=== PATIENT | female | born 1960 | race African-American/Black ===

== ENCOUNTER → 2016-03-29 | Outpatient (CLI) | payer OTHER ==
[~2016-03-29] MED LIST: AMLO-110 PO; ANT25 PO; BARB1CAP PO; CLAR500T3 PO; CLIN1GEL TOP; CLOB-65 TOP; CMP/10 PO; EFF75 PO; ERGO1CAP35 PO; GLC5 PO; HYOS0.1271 PO; HYOS1TAB PO; INSU100I SC; INSU100I2 SQ; INSU1INJ15 SC; LISI-461 PO; LISI-729 PO; LVMI SC; METR1TAB4 PO; NORT25CA PO; NRV/5 PO; ONDA4TAB10 SL; ONDA4TAB46 PO; ONDA4TAB65 PO; PLQ200 PO; PTDOPS OPB; RIBO1TAB4 PO; TRAM-10 PO; TRIA0.1C20; ULT/50 PO
== END | disposition home or self-care (01) ==
LOC: C.LABSPEC 13:04
PROVIDERS: ATTEND Nurse Practitioner Family
DX: R76.8 Other specified abnormal immunological findings in serum (principal); E11.9 Type 2 diabetes mellitus without complications

== ENCOUNTER 2016-12-15 09:34 | Emergency (ER) | payer OTHER ==
[~2016-12-15] VITALS: Ht 167.6 cm; Wt 100.2 kg
[~2016-12-15 09:34] MED LIST changes: -AMLO-110 PO; -EFF75 PO; -HYOS0.1271 PO; -INSU100I SC; -LISI-729 PO; -LVMI SC; -ONDA4TAB10 SL; -ONDA4TAB46 PO; -TRAM-10 PO
[2016-12-15 09:39] VITALS: TEMP 36.7; Ht 167.6 cm; Wt 100.2 kg
[2016-12-15] MEDS ORDERED: LISI-729 PO (10:29)
[2016-12-15] MEDS ORDERED: LVMI SC (10:29)
[2016-12-15] MEDS ORDERED: GLC5 PO (10:29)
[2016-12-15] MEDS ORDERED: HYOS0.1271 PO (10:29)
[2016-12-15] MEDS ORDERED: AMLO-110 PO (10:29)
[2016-12-15] MEDS ORDERED: RIBO1TAB4 PO (10:29)
[2016-12-15] MEDS ORDERED: INSU100I SC (10:29)
[2016-12-15] MEDS ORDERED: ONDA4TAB46 PO (10:29)
[2016-12-15] MEDS ORDERED: NORT25CA PO (10:29)
[2016-12-15] MEDS ORDERED: TRAM-10 PO (10:29)
[2016-12-15] MEDS ORDERED: EFF75 PO (10:33)
[2016-12-15] MEDS ORDERED: SODIUM CHLORIDE 0.9% 1000ML 1,000 ML IV STA (10:48)
[2016-12-15] MEDS ORDERED: ONDANSETRON INJ 2 MG/ML 2 ML VIAL IV STA (10:48)
[2016-12-15] MEDS ORDERED: HYOSCYAMINE SULFATE 0.125 MG SL TAB SL STA (10:48)
[2016-12-15 11:03] LABS: BASO % 0.2 %; BASO ABS # 0.02 K/uL (0-0.2); COMPLETE YES; EOS % 0.3 %; IG% 0.2 %; LYMPH % 47.1 %; MEAN CELL VOLUME 86.4 fL (80-100); MEAN CORPUSCULAR HEMOGLOBIN 28.7 pg (25-34); MEAN CORPUSCULAR HGB CONC 33.2 g/dl (32-36); MEAN PLATELET VOLUME 10.2 fL (7.4-10.4); MONO % 5.7 %; NEUT % 46.5 %; PLATELET COUNT 394 K/uL (130-400); RED BLOOD COUNT 5.09 M/uL (4.2-5.4); WHITE BLOOD COUNT 9.97 K/uL (4.8-10.8)
[2016-12-15 11:10] LABS: URINE APPEARANCE TURBID (CLEAR); URINE COLOR DK YELLOW; URINE EPITHELIAL CELL AUTO >30 /lpf (0-5); URINE NITRITE POS (NEG); URINE SPECIFIC GRAVITY 1.033 (1.000-1.030); UROBILINOGEN NEG (NEG)
[2016-12-15 11:12] LABS: BUN/CREATININE RATIO 14.9 (10-20); CALCIUM 9.5 mg/dl (8.5-10.1); CREATININE 0.8 mg/dl (0.60-1.20); POTASSIUM 4.1 mmol/L (3.5-5.1)
[2016-12-15 11:18] LABS: MANUAL MICROSCOPIC REQUIRED? NO; REVIEW REQ? YES; URINE BILIRUBIN NEG (NEG)
[2016-12-15 11:21] LABS: URINE MUCUS PRESENT (NONE PRSENT)
--- NOTE | 2016-12-15 12:39 | DIAGNOSTIC IMAGING REPORT ---
ABDOMEN 2VIEW W/PA CHEST RTN CLINICAL HISTORY: 56 years-old Female presenting with nausea and vomiting for one week, concern for obstruction. TECHNIQUE: PA view of the chest and supine and upright views of the abdomen were obtained. COMPARISON: CT from 2014. FINDINGS: Cardiomediastinal silhouette normal. Lungs and pleural spaces clear. Cholecystectomy clips. Mild gaseous distention of small bowel without convincing evidence of an obstruction. Mild small bowel wall thickening suggested in the left mid abdomen. No evidence of free intraperitoneal gas, pneumatosis, or portal venous gas. Degenerative changes of the spine. IMPRESSION: 1. No acute cardiopulmonary disease. 2. Mild gaseous distention of small bowel could suggest ileus. Suggestion of mild small bowel wall thickening, possibly indicating enteritis. No convincing evidence of bowel obstruction. Further evaluation with cross-sectional imaging as clinically indicated. Electronically signed by: Pedro De Souza M.D. 12/15/2016 12:38 PM Dictated Date/Time: 12/15/2016 12:35 PM
[2016-12-15] MEDS ORDERED: ONDA4TAB10 SL (14:31)
[2016-12-15 15:06] VITALS: BP 132/77; PULSE 89; O2SAT 99
--- NOTE | 2016-12-15 18:14 | EMERGENCY ROOM VISIT NOTE ---
History Report prepared by Asael: Rosie Krishnamurthy Under the Supervision of: Dr. Rafi Maguire M.D. First contact with patient: 10:32 Chief Complaint: GI ASSESSMENT Stated Complaint: GASTRIC INTESTINAL DISEASE Nursing Triage Summary: pt reports 2 weeks ago had an episode of NVD lasting about 3 days , was able to work 1 week then sx started again today History of Present Illness The patient is a 56 year old female who presents to the Emergency Room for a GI assessment. About 10 days ago the patient developed nausea, vomiting, and diarrhea. She states that her symptoms lasted for about 48 hours and then she was feeling better. All week she was doing well and was able to go to work. Four days ago she developed symptoms again. She has been experiencing nausea, vomiting, and diarrhea. She has tried taking Zofran pills, but has been unable to keep it down. She has not been able to eat or drink much. The patient estimates that she is having about 3 episodes of watery diarrhea per day. She denies any melena or hematochezia. She reports diffuse abdominal pain that she describes as crampy and rates as a 6/10 in severity. The patient denies any fevers. Source of History: patient Onset: 4 days ago Position: abdomen Symptom Intensity: 6/10 Quality: cramping Timing: intermittent Modifying Factors (Worsening): eating, drinking Associated Symptoms: + nausea, + vomiting, + diarrhea, No fevers, No melena , No hematochezia Review of Systems See HPI for pertinent positives & negatives. A total of 10 systems reviewed and were otherwise negative. Past Medical & Surgical Medical Problems: (1) Asthma, Unspecified (2) Diab Hattie Wo Compl, Type Ii Or Unspec Type, Not Uncntrld (3) Hypertension Nos (4) IBS (irritable bowel syndrome) (5) Lupus Erythematosus (6) Pulmonary embolism Surgical Problems: (1) History of cholecystectomy Family History Cancer Diabetes mellitus Gallbladder disease Heart disease Hypertension Lung disease Social History Smoking Status: Former Smoker Alcohol Use: occasionally Drug Use: none Marital Status: Housing Status: lives with significant other Occupation Status: employed Current/Historical Medications Scheduled Amlodipine (Norvasc), 5 MG PO DAILY Glipizide (Glipizide), 5 MG PO AMPM Insulin Detemir (Levemir), 30 UNITS SC HS Insulin Lispro (Human) (Humalog), 25 UNITS SC DAILY Lisinopril (Prinivil), 5 MG PO DAILY Nortriptyline (Pamelor), 25 MG PO DAILY Ondasetron Odt (Zofran Odt), 4 MG SL Q6H Riboflavin (Riboflavin), 400 MG PO QPM Venlafaxine Hcl (Effexor), 75 MG PO DAILY Scheduled PRN Hyoscyamine Sulfate (Hyoscyamine Sulfate), 0.125 MG PO DAILY PRN for IBS Ondansetron Hcl (Zofran), 4 MG PO Q6 PRN for Nausea Tramadol (Ultram), 50 MG PO Q8H PRN for Pain Allergies Coded Allergies: Penicillins (Verified Allergy, Severe, ANAPHYLAXIS AND RASH, 12/15/16) Aspirin (Verified Allergy, Unknown, STOMACH UPSET AND ANAPHYLAXIS, 12/15/16 ) Lidocaine (Verified Allergy, Unknown, RASH AND SWELLING AT SITE OF INJECTION, 12/15/16) Rofecoxib (Verified Allergy, Unknown, ANAPHYLAXIS, 12/15/16) Physical Exam Vital Signs Date Time Temp Pulse Resp B/P (MAP) Pulse Ox O2 Delivery O2 Flow Rate FiO2 12/15/16 15:06 89 17 132/77 99 12/15/16 13:36 92 17 135/85 98 Room Air 12/15/16 12:36 64 17 125/82 99 Room Air 12/15/16 11:50 83 21 124/87 97 Room Air 12/15/16 09:39 36.7 98 20 96 Room Air Physical Exam Constitutional: Vital signs reviewed. Eyes: Pupils are equal round reactive to light. Conjunctiva are noninjected. ENT: Pharynx is clear without erythema or exudate. Mucous membranes are dry. Neck supple without meningeal signs. Respiratory: Clear to auscultation bilaterally. Breath sounds are equal bilaterally. Cardiovascular: Regular rate and rhythm. No rubs or gallops. GI: Soft, nondistended with mild diffuse abdominal tenderness. Bowel sounds are present. Musculoskeletal: No peripheral edema. No lower extremity tenderness. Integumentary: No cyanosis. Neurological: The patient is awake and alert. No focal deficits. Psychiatric: Normal affect. Medical Decision & Procedures ER Provider Diagnostic Interpretation: Radiology results as stated below per my review and the radiologist's interpretation: ABDOMEN 2VIEW W/PA CHEST RTN CLINICAL HISTORY: 56 years-old Female presenting with nausea and vomiting for one week, concern for obstruction. TECHNIQUE: PA view of the chest and supine and upright views of the abdomen were obtained. COMPARISON: CT from 2014. FINDINGS: Cardiomediastinal silhouette normal. Lungs and pleural spaces clear. Cholecystectomy clips. Mild gaseous distention of small bowel without convincing evidence of an obstruction. Mild small bowel wall thickening suggested in the left mid abdomen. No evidence of free intraperitoneal gas, pneumatosis, or portal venous gas. Degenerative changes of the spine. IMPRESSION: 1. No acute cardiopulmonary disease. 2. Mild gaseous distention of small bowel could suggest ileus. Suggestion of mild small bowel wall thickening, possibly indicating enteritis. No convincing evidence of bowel obstruction. Further evaluation with cross-sectional imaging as clinically indicated. Electronically signed by: Pedro De Souza M.D. 12/15/2016 12:38 PM Dictated Date/Time: 12/15/2016 12:35 PM Laboratory Results 12/15/16 10:25 Red Blood Count 5.09, Mean Corpuscular Volume 86.4, Mean Corpuscular Hemoglobin 28.7, Mean Corpuscular Hemoglobin Concent 33.2, Mean Platelet Volume 10.2, Neutrophils (%) (Auto) 46.5, Lymphocytes (%) (Auto) 47.1, Monocytes (%) (Auto) 5.7, Eosinophils (%) (Auto) 0.3, Basophils (%) (Auto) 0.2, Neutrophils # (Auto) 4.63, Lymphocytes # (Auto) 4.70, Monocytes # (Auto) 0.57, Eosinophils # (Auto) 0.03, Basophils # (Auto) 0.02 12/15/16 10:25 Test 12/15/16 10:20 12/15/16 10:25 Urine Color DK YELLOW Urine Appearance TURBID (CLEAR) Urine pH 5.0 (4.5-7.5) Urine Specific Elizabeth 1.033 (1.000-1.030) Urine Protein 1+ (NEG) Urine Glucose (UA) TRACE (NEG) Urine Ketones 1+ (NEG) Urine Occult Blood NEG (NEG) Urine Nitrite POS (NEG) Urine Bilirubin NEG (NEG) Urine Urobilinogen NEG (NEG) Urine Leukocyte Esterase NEG (NEG) Urine WBC (Auto) 1-5 /hpf (0-5) Urine RBC (Auto) 0-4 /hpf (0-4) Urine Hyaline Casts (Auto) 1-5 /lpf (0-5) Urine Epithelial Cells (Auto) >30 /lpf (0-5) Urine Bacteria (Auto) 2+ (NEG) Urine Crystals AMORPHOUS SEDIMENT (NONE Urine Pathogenic Casts /lpf (0) Urine Mucus PRESENT (NONE PRSENT) White Blood Count 9.97 K/uL (4.8-10.8) Red Blood Count 5.09 M/uL (4.2-5.4) Hemoglobin 14.6 g/dL (12.0-16.0) Hematocrit 44.0 % (37-47) Mean Corpuscular Volume 86.4 fL (80-100) Mean Corpuscular Hemoglobin 28.7 pg (25-34) Mean Corpuscular Hemoglobin Concent 33.2 g/dl (32-36) Platelet Count 394 K/uL (130-400) Mean Platelet Volume 10.2 fL (7.4-10.4) Neutrophils (%) (Auto) 46.5 % Lymphocytes (%) (Auto) 47.1 % Monocytes (%) (Auto) 5.7 % Eosinophils (%) (Auto) 0.3 % Basophils (%) (Auto) 0.2 % Neutrophils # (Auto) 4.63 K/uL (1.4-6.5) Lymphocytes # (Auto) 4.70 K/uL (1.2-3.4) Monocytes # (Auto) 0.57 K/uL (0.11-0.59) Eosinophils # (Auto) 0.03 K/uL (0-0.5) Basophils # (Auto) 0.02 K/uL (0-0.2) RDW Standard Deviation 44.1 fL (36.4-46.3) RDW Coefficient of Variation 14.1 % (11.5-14.5) Immature Granulocyte % (Auto) 0.2 % Immature Granulocyte # (Auto) 0.02 K/uL (0.00-0.02) Anion Gap 10.0 mmol/L (3-11) Est Creatinine Clear Calc Drug Dose 91.5 ml/min Estimated GFR () 94.2 Estimated GFR (Non- 81.3 BUN/Creatinine Ratio 14.9 (10-20) Calcium Level 9.5 mg/dl (8.5-10.1) Total Bilirubin 0.7 mg/dl (0.2-1) Direct Bilirubin 0.1 mg/dl (0-0.2) Aspartate Amino Transf (AST/SGOT) 12 U/L (15-37) Alanine Aminotransferase (ALT/SGPT) 22 U/L (12-78) Alkaline Phosphatase 117 U/L (45-117) Total Protein 7.5 gm/dl (6.4-8.2) Albumin 3.7 gm/dl (3.4-5.0) Lipase 58 U/L (73-393) Laboratory results as reviewed by me. Medications Administered Medications (Trade) Dose Ordered Sig/Karen Route Start Time Stop Time Status Last Admin Dose Admin Ondansetron HCl (Zofran Inj) 4 mg NOW STAT IV 12/15/16 10:48 12/15/16 10:50 DC 12/15/16 11:28 4 MG Sodium Chloride 1,000 ml @ 999 mls/hr Q1H1M STAT IV 12/15/16 10:48 12/15/16 11:48 DC 12/15/16 11:28 999 MLS/HR Hyoscyamine Sulfate (Levsin Tab) 0.125 mg NOW STAT SL 12/15/16 10:48 12/15/16 10:50 DC 12/15/16 11:28 0.125 MG ED Course 1032: The patient was evaluated in room C9. A complete history and physical exam was performed. 1048: Levsin 0.125 mg SL, NSS 1000 ml @ 999 mls/hr IV, Zofran 4 mg IV 1427: I reassessed the patient at this time. She is feeling better and resting comfortably. I discussed the results and treatment plan with patient. I answered all pertaining questions that she had. She expressed understanding and verbalized agreement. The patient will be discharged home. Medical Decision This is a 56-year-old female who presents with vomiting and diarrhea. Differential diagnosis includes food borne illness, gastroenteritis, dehydration , electrolyte abnormality, C. difficile. I did perform a limited focused review of portions of the patient's old chart on the electronic medical record. The patient has had no recent pertinent visits to this hospital. I did evaluate the patient as noted above. Patient is presenting with episodic vomiting and diarrhea. She denies any recent antibiotic use. She has had no foreign travel. No sick contacts. IV access was established. I did treat the patient with Zofran IV and normal saline IV. She was also given Levsin sublingually. I did order and personally review the patient's urinalysis as described above. Findings are equivocal. She denies urinary symptoms. A urine culture was sent. I did order and review the patient's blood work as noted in the electronic medical record. Her white blood cell count is not elevated. Electrolytes are unremarkable. I did obtain an x-ray of the abdomen and chest. She does have some small bowel wall thickening suggestive of enteritis. I did order stool cultures and C. difficile testing the patient was unable to give us a sample. I did reassess the patient. She is feeling better. I did discuss the test results with her. After discussion about possible CT scanning she preferred not to have it done. She was discharged with a prescription for Zofran ODT which she will take instead of her pills. She will follow closely with her doctor. She was discharged in good condition. Medication Reconcilliation Current Medication List: was personally reviewed by me Blood Pressure Screening Patient's blood pressure: Elevated blood pressure Blood pressure disposition: Elevated BP felt to be situational Impression Primary Impression: Gastroenteritis Additional Impression: Dehydration Scribe Attestation The scribe's documentation has been prepared under my direct and personally reviewed by me in its entirety. I confirm that the note above accurately reflects all work, treatment, procedures, and medical decision making performed by me. Departure Information Dispostion Home / Self-Care Prescriptions Ondasetron Odt (ZOFRAN ODT) 4 Mg Tab 4 MG SL Q6H for Nausea, #10 TAB Prov: Rafi Maguire M.D. 12/15/16 Referrals Yobani Hernandez M.D. (PCP) Forms HOME CARE DOCUMENTATION FORM, IMPORTANT VISIT INFORMATION Patient Instructions ED Vomiting Diarrhea Nonspecific Ad, My [facility] Additional Instructions You have been examined and treated today on an emergency basis only. This is not a substitute for, or an effort to provide, complete comprehensive medical care. It is impossible to recognize and treat all injuries or illnesses in a single emergency department visit. It is therefore important that you follow up closely with your physician. Call as soon as possible for an appointment. Return for worsening symptoms or if you develop fever, rectal bleeding or any other concerning symptoms. Problem Qualifiers
== END 2016-12-15 15:05 | disposition home or self-care (01) ==
LOC: C.EDB 09:36 → C.EDC 15:05
DX: K52.9 Noninfective gastroenteritis and colitis, unspecified (principal); E86.0 Dehydration; E11.9 Type 2 diabetes mellitus without complications; Z79.4 Long term (current) use of insulin; Z79.899 Other long term (current) drug therapy; I10 Essential (primary) hypertension

== ENCOUNTER → 2017-02-25 | Outpatient (CLI) | payer OTHER ==
[~2017-02-25] MED LIST changes: +AMLO-110 PO; -ANT25 PO; -BARB1CAP PO; -CLAR500T3 PO; -CLIN1GEL TOP; -CLOB-65 TOP; -CMP/10 PO; +EFF75 PO; -ERGO1CAP35 PO; +HYOS0.1271 PO; -HYOS1TAB PO; +INSU100I SC; -INSU100I2 SQ; -INSU1INJ15 SC; -LISI-461 PO; +LISI-729 PO; +LVMI SC; -METR1TAB4 PO; -NRV/5 PO; +ONDA4TAB10 SL; +ONDA4TAB46 PO; -ONDA4TAB65 PO; -PLQ200 PO; -PTDOPS OPB; +TRAM-10 PO; -TRIA0.1C20; -ULT/50 PO
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
== END | disposition home or self-care (01) ==
LOC: C.RAD1850 16:06
PROVIDERS: ATTEND Family Medicine
DX: M75.31 Calcific tendinitis of right shoulder (principal); V89.2XXA Person injured in unspecified motor-vehicle accident, traffic, initial encounter

== ENCOUNTER → 2017-02-26 | Outpatient (CLI) | payer OTHER ==
[~2017-02-26] VITALS: Ht 167.6 cm; Wt 103.7 kg
[2017-02-26 16:10] VITALS: BP 137/92; PULSE 97; Ht 167.6 cm; Wt 103.7 kg
== END | disposition home or self-care (01) ==
LOC: C.NEUR 15:20
PROVIDERS: ATTEND Internal Medicine Pulmonary Disease
DX: G47.33 Obstructive sleep apnea (adult) (pediatric) (principal)

== ENCOUNTER → 2017-03-26 | Outpatient (CLI) | payer OTHER ==
[2017-03-26 12:14] LABS: HEMOGLOBIN 13.3 g/dL (12.0-16.0); MEAN CELL VOLUME 87.9 fL (80-100); MEAN CORPUSCULAR HEMOGLOBIN 29.2 pg (25-34); MEAN CORPUSCULAR HGB CONC 33.3 g/dl (32-36); MEAN PLATELET VOLUME 10.8 fL (7.4-10.4); PLATELET COUNT 380 K/uL (130-400); RED CELL DISTRIBUTION WIDTH SD 47.9 fL (36.4-46.3); WHITE BLOOD COUNT 8.22 K/uL (4.8-10.8)
[2017-03-26 12:24] LABS: ALBUMIN 3.5 gm/dl (3.4-5.0); BLOOD UREA NITROGEN 14 mg/dl (7-18); CALCIUM 9.5 mg/dl (8.5-10.1); CARBON DIOXIDE 29 mmol/L (21-32); CREATININE 0.74 mg/dl (0.60-1.20); GLUCOSE 162 mg/dl (70-99); PHOSPHORUS 4.5 mg/dl (2.5-4.9); POTASSIUM 4.1 mmol/L (3.5-5.1); SODIUM 139 mmol/L (136-145)
== END | disposition home or self-care (01) ==
LOC: C.LAB1850 10:14
PROVIDERS: ATTEND Internal Medicine Nephrology
DX: I12.9 Hypertensive chronic kidney disease with stage 1 through stage 4 chronic kidney disease, or unspecified chronic kidney disease (principal); N18.9 Chronic kidney disease, unspecified; D64.9 Anemia, unspecified; E55.9 Vitamin D deficiency, unspecified

== ENCOUNTER → 2017-04-10 | Outpatient (CLI) | payer OTHER | END | disposition home or self-care (01) | LOC: C.LAB 11:34 | PROVIDERS: ATTEND Internal Medicine Nephrology | DX: E78.00 Pure hypercholesterolemia, unspecified (principal) ==

== ENCOUNTER → 2017-05-18 | Outpatient (CLI) | payer OTHER ==
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
== END | disposition home or self-care (01) ==
LOC: C.MRI 13:38
PROVIDERS: ATTEND Orthopaedic Surgery
DX: M75.01 Adhesive capsulitis of right shoulder (principal); M75.101 Unspecified rotator cuff tear or rupture of right shoulder, not specified as traumatic; M75.51 Bursitis of right shoulder

== ENCOUNTER → 2017-08-03 | Day surgery (SDC) | payer OTHER ==
[2017-06-04 15:10] VITALS: Ht 167.6 cm; Wt 103.2 kg
[2017-07-17 08:43] LABS: HEMOGLOBIN 13.4 g/dL (12.0-16.0); MEAN CELL VOLUME 87.8 fL (80-100); MEAN CORPUSCULAR HEMOGLOBIN 30.2 pg (25-34); MEAN CORPUSCULAR HGB CONC 34.4 g/dl (32-36); MEAN PLATELET VOLUME 10.1 fL (7.4-10.4); PLATELET COUNT 300 K/uL (130-400); RED CELL DISTRIBUTION WIDTH SD 45.4 fL (36.4-46.3); WHITE BLOOD COUNT 6.81 K/uL (4.8-10.8)
[2017-07-17 09:15] LABS: ALBUMIN 3.6 gm/dl (3.4-5.0); CALCIUM 8.8 mg/dl (8.5-10.1); CREATININE 0.63 mg/dl (0.60-1.20); POTASSIUM 4.1 mmol/L (3.5-5.1)
[2017-07-17 09:18] LABS: TOTAL PROTEIN 7.3 gm/dl (6.4-8.2)
[~2017-08-03] VITALS: Ht 167.6 cm; Wt 103.2 kg
[~2017-08-03] MED LIST changes: +ATOR-24 PO; +CLINDAMYCIN PHOS 150 MG/ML 2 ML VIAL IV SCH; +DEXAMETHASONE SOD INJ 4 MG/ML VIAL ONE; +DEXTROSE 50% 50 ML SYR IV ONE; +ERGO500011 PO; +EpINEphrine HCL INJ 1 MG/ML 1ML SYRINGE ONE; +FENTANYL CITRATE INJ 50 MCG/1 ML 2 ML VIAL ONE; -GLC5 PO; +LACTATED RINGER'S 1000ML 1,000 ML IV SCH; +LIDOCAINE HCL 2% 2 ML VIAL (20MG/ML) ONE; +MIDAZOLAM HCL 1 MG/ML 2ML VIAL ONE; -NORT25CA PO; +NURSING VERBAL MED ORDER ONE; -ONDA4TAB10 SL; +ONDANSETRON INJ 2 MG/ML 2 ML VIAL ONE; +PROPOFOL IV EMULSION 10 MG/ML 20 ML VIAL ONE; +ROCURONIUM BROMIDE 10 MG/ML 5 ML VIAL ONE; +ROPIVACAINE 0.5% 5 MG/ML 30 ML VIAL ONE
--- NOTE | 2017-08-03 06:43 | History & Physical Bridge - SC ---
H&P Re-Evaluation Bridge Note: I have examined the patient, reviewed the History & Physical and in the interval since the performance of the History & Physical I have noted the following changes of clinical significance: No changes noted
[2017-08-03] MEDS: DEXTROSE 50% 50 ML SYR ONE ×2 (06:46→07:00)
[2017-08-03 06:56] VITALS: BP 135/72; PULSE 87; TEMP 37; O2SAT 97
--- NOTE | 2017-08-03 09:25 | Progress Note ---
Progress Note Date of Service August 03, 2017. Progress Note The patient has a history of brittle insulin -dependent diabetes. On arrival the patient's FBG was 44 and on repeat, 49. She was given 1/2 amp of D50 and her blood sugar only went up to 74. She was given the other half amp od D50 and it went up to 107, far less than I expected. I discussed this with Dr. Freeman and the patient and explained the risk of proceeding with the case today, because there is a significant chance of her becoming hypoglycemic during the case, and suggested that we cancel for today and re-schedule at the main [facility].R[facility] where we can have an arterial line for frequent monitoring. In addition we will allow her to take her evening insulin but no insulin in the morning.She had been instructed to take half of her humalog and levimir insulin on the morning of surgery.
== END | disposition home or self-care (01) ==
LOC: X.SURG 06:19
PROVIDERS: ATTEND Orthopaedic Surgery
DX: Z53.09 Procedure and treatment not carried out because of other contraindication (principal); S46.011A Strain of muscle(s) and tendon(s) of the rotator cuff of right shoulder, initial encounter; V89.2XXA Person injured in unspecified motor-vehicle accident, traffic, initial encounter; J45.909 Unspecified asthma, uncomplicated; E10.9 Type 1 diabetes mellitus without complications; I10 Essential (primary) hypertension; K21.9 Gastro-esophageal reflux disease without esophagitis; E55.9 Vitamin D deficiency, unspecified; I12.9 Hypertensive chronic kidney disease with stage 1 through stage 4 chronic kidney disease, or unspecified chronic kidney disease; Z88.6 Allergy status to analgesic agent; Z88.4 Allergy status to anesthetic agent; Z88.1 Allergy status to other antibiotic agents; Z88.0 Allergy status to penicillin; Z90.49 Acquired absence of other specified parts of digestive tract; E78.5 Hyperlipidemia, unspecified; Z86.711 Personal history of pulmonary embolism; N18.9 Chronic kidney disease, unspecified; F32.9 Major depressive disorder, single episode, unspecified; F41.9 Anxiety disorder, unspecified; E66.9 Obesity, unspecified

== ENCOUNTER 2020-05-29 16:50 | Inpatient (IN) ==
[2020-05-29] MEDS ORDERED: ALBUT/IPRATROP 3MG/0.5MG NEB 3 ML VIAL INH STA (17:12)
--- NOTE | 2020-05-29 17:17 | Emergency Department Note ---
Impression & Plan Pulmonary embolism, Hypoxia, Demand ischemia of myocardium ED Provider Note Provider: Mario Odell MD DATE OF SERVICE: 05/29/2020 CHIEF COMPLAINT: Shortness of breath HISTORY OF PRESENT ILLNESS: Patient is a 59-year-old female with a past medical history including intercostal neuralgia, CKG, fibromyalgia, IBS, lupus, diabetes, hypertension, distant history of PE more than 30 years ago presenting here today reporting significant shortness of breath since this morning. States she went for a walk on Wednesday and was a bit more winded than normal then but this quickly improved and yesterday she was doing well. Woke this morning was significantly short of breath and prickly with exertion felt very winded and somewhat faint. States he is having some more chest discomfort as well beyond her normal intercostal neuralgia. Patient states she is several doses of her inhaler at home but that has not helped. Patient states he felt a bit wheezy but denies fever or URI symptoms. Denies leg swelling or recent travel. States her prior PE she believes was related to OCPs and was more than 3 decades ago. Lives at home with who is otherwise well. REVIEW OF SYSTEMS: A total of 10 review of systems was obtained and negative except as stated above in the HPI. 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 NECK: Trachea midline. LUNGS: Airway patent. No retractions but tachypneic. Slight expiratory wheeze throughout. HEART: Regular tachycardic rate and rhythm. No chest wall tenderness ABDOMEN: Soft and non-tender, without guarding or rebound. SKIN: Acyanotic, warm, dry, without rashes EXTREMITIES: Without swelling, tenderness or deformity NEUROLOGICAL: No focal deficits. No aphasia. No facial droop or slurred speech. EK bpm sinus tachycardia. No PVC or PAC. Some lateral ST flattening with T wave inversions more prominent in inferior leads compared to previous from 03/19. No acute ST segment elevation is noted today. Right axis noted. CONTINUOUS CARDIAC MONITORING: was ordered and showed a heart rate of 110s-120s bpm in sinus tachycardia Patient's laboratory studies and imaging reviewed. Differential includes Reactive airway disease, pneumonia, pneumothorax, COPD, CHF, infections, cardiac ischemia, pulmonary embolism, musculoskeletal, gastrointestinal, as well as other pathologies. IMPRESSION/MEDICAL DECISION MAKING: Patient is complaining of shortness of breath tachycardic and hypoxic. Some worsening chest discomfort. Significant concern for possible PE. I-STAT obtained. Patient maintained on 2 to 3 L of oxygen at rest satting about 90%. Did trial DuoNeb without significant change in symptoms. Doubt this is significant reactive airway disease. EKG noted question some inferior T wave inversions new today. Blood work with hyperglycemia and slightly elevated troponin. Likely demand ischemia. Nonspecific white count of 12.2 noted. proBNP mildly elevated at 4780. Covid test was sent. CT per radiology with evidence of extensive bilateral PEs. Likely pulmonary infarct based on the clinical context throughout the right lung. Doubt this is acutely infectious given her history and testing here today. A 1.9 cm mediastinal lymph node was noted and patient was made aware of this. Patient was started on heparin ggt. She was updated regarding findings and the PEs noted on scan. Hospitalist contacted for admission. Do not feel at this time she represents a massive PE requiring TPA. DIAGNOSIS: Hypoxia, bilateral PEs, demand ischemia DISPOSITION: Hospitalist will evaluate Patient was agreeable with this plan. Critical Care I have personally spent 35 minutes of critical care time in the direct management of this patient. This includes bedside care, interpretation of diagnostic studies, and testing, discussion with consultants, patient, and family members, and other required patient management activities. These 35 minutes is in excess of all separately billable procedures. Past Med/Surg History Medical History Acute diverticulitis Anemia Cataracts, both eyes Deep vein thrombosis Difficult airway for intubation Gastroenteritis H. pylori infection History of anesthesia reaction Post concussion syndrome Pulmonary embolism Right upper quadrant abdominal pain Right-sided thoracic back pain Surgical History History of cholecystectomy History of colonoscopy History of dilatation and curettage History of esophagogastroduodenoscopy (EGD) History of left breast biopsy History of ovarian cystectomy History of phacoemulsification of cataract of both eyes with intraocular lens implantation History of repair of right rotator cuff History of wisdom tooth extraction Family History Mother Family history of diabetes mellitus Grandmother (Maternal) Family history of diabetes mellitus Grandfather (Paternal) Family history of diabetes mellitus Aunt Family history of diabetes mellitus Family/Other Family history of diabetes mellitus cousins Other No family history of adverse response to anesthesia Social History Smoking Status: Former smoker Second Hand Exposure: Yes (father/relatives smoked); Hx Alcohol Use: Yes Alcohol type: beer, wine and hard liquor Hx Substance Use: No Preferred Language: Serbian Communication Ability: Effective Special Needs Teacher Required: No Beliefs That Will Affect Care: Mormon Mormon Beliefs: Spiritism--will receive Blood Products Current Living Situation: Spouse Other Information That Helps Us Care for You: No Feels Safe at Home: Yes Safety Concerns: Feels Safe At This Time Assistive Devices: Oxygen - Continuous Allergies Allergies Allergy/AdvReac Type Severity Reaction Status Date / Time aspirin Allergy Severe STOMACH Verified 05/22/20 09:15 UPSET AND ANAPHYLAXIS Penicillins Allergy Severe ANAPHYLAXIS Verified 05/22/20 09:15 AND RASH rofecoxib Allergy Severe ANAPHYLAXIS Verified 05/22/20 09:15 pollen extracts Allergy Unknown SINUS Verified 05/22/20 09:15 CONGESTION, ITCHY THROAT, WATERY EYES tomato AdvReac Mild nausea/vomi Verified 05/22/20 09:15 ting Vioxx Allergy Uncoded 05/22/20 09:15 Home Meds Home Medications Medication Instructions Recorded Confirmed Benefiber Healthy Shape 5 g PO QAM 10/06/18 05/29/20 Levemir FlexTouch U-100 Insuln 15 unit SUBCUT AMPM 10/06/18 05/29/20 albuterol sulfate [ProAir HFA] 2 puff INHALATION Q6H PRN 10/06/18 05/29/20 amlodipine 10 mg PO QAM 10/06/18 05/29/20 clindamycin phosphate 1 applic TOPICAL DAILY PRN 10/06/18 05/29/20 clobetasol 1 applic TOPICAL DAILY PRN 10/06/18 05/29/20 ergocalciferol (vitamin D2) 50,000 unit PO WK 10/06/18 05/29/20 glimepiride 2 mg PO QAM 10/06/18 05/29/20 insulin lispro [Humalog KwikPen 0 unit SUBCUT TIDM 10/06/18 05/29/20 Insulin] lisinopril 10 mg PO QAM 10/06/18 05/29/20 prochlorperazine maleate 10 mg PO UD PRN 10/06/18 05/29/20 [Compazine] riboflavin (vitamin B2) 400 mg PO QAM 10/06/18 05/29/20 tramadol 50 mg PO TID PRN 10/06/18 05/29/20 venlafaxine 150 mg PO AMPM 10/06/18 05/29/20 ydrlefrwvm-rypeciysfpeyd-gscqilam 1 tab PO Q4H PRN 06/08/19 05/29/20 50 mg-325 mg-40 mg tablet magnesium oxide 500 mg capsule 500 mg PO DAILY 06/08/19 05/29/20 ondansetron HCl 8 mg tablet 8 mg PO TID 06/08/19 05/29/20 Previous Rx's Medication Instructions Recorded pregabalin 100 mg capsule 100 mg PO BID #60 cap 04/12/20 diclofenac sodium 50 mg 50 mg PO BID #60 tab 04/29/20 tablet,delayed release Results & Data (ED) Vital Signs Vital Signs - 24 hr 05/29/20 16:54 05/29/20 17:04 05/29/20 17:06 Temperature 36.4 C L Temperature Source Oral Pulse Rate 128 H 133 H Pulse Rate [Apical] 120 H Pulse Rate from SpO2 Sensor 122 H Respiratory Rate 28 H 24 18 Respiratory Effort / Characteristics Blood Pressure 181/95 H 161/102 H Blood Pressure [Right Arm] 161/102 H Blood Pressure Mean 123 121 Blood Pressure Mean [Right Arm] 121 Pulse Oximetry 82 L 90 90 Oxygen Delivery Method Nasal Cannula Oxygen Flow Rate 3 Sepsis Recent Fever Within 48 Hours No Sepsis New/Unexplained Change in Mental Status N/A Sepsis Action Taken by Nursing No Action Required Oxygen Flow Rate - Titration 3 Pulse Oximetry Post Tiitration 91 05/29/20 17:07 05/29/20 17:21 05/29/20 17:30 Temperature Temperature Source Pulse Rate 120 H 117 H Pulse Rate [Apical] Pulse Rate from SpO2 Sensor 121 H Respiratory Rate 32 H 16 Respiratory Effort / Characteristics Blood Pressure Blood Pressure [Right Arm] Blood Pressure Mean Blood Pressure Mean [Right Arm] Pulse Oximetry 90 Oxygen Delivery Method Nasal Cannula Oxygen Flow Rate 3 Sepsis Recent Fever Within 48 Hours Sepsis New/Unexplained Change in Mental Status Sepsis Action Taken by Nursing Oxygen Flow Rate - Titration Pulse Oximetry Post Tiitration 05/29/20 17:35 05/29/20 18:09 05/29/20 18:10 Temperature Temperature Source Pulse Rate 114 H 0 L 117 H Pulse Rate [Apical] Pulse Rate from SpO2 Sensor 115 H 118 H 116 H Respiratory Rate 24 19 19 Respiratory Effort / Characteristics Blood Pressure 120/90 143/101 H Blood Pressure [Right Arm] Blood Pressure Mean 100 115 Blood Pressure Mean [Right Arm] Pulse Oximetry 88 L 87 L 85 L Oxygen Delivery Method Oxygen Flow Rate Sepsis Recent Fever Within 48 Hours Sepsis New/Unexplained Change in Mental Status Sepsis Action Taken by Nursing Oxygen Flow Rate - Titration Pulse Oximetry Post Tiitration 05/29/20 18:30 05/29/20 18:45 05/29/20 19:00 Temperature Temperature Source Pulse Rate Pulse Rate [Apical] 115 H Pulse Rate from SpO2 Sensor 116 H 118 H Respiratory Rate 21 27 H 27 H Respiratory Effort / Characteristics Non-Labored Spontaneous Blood Pressure 172/105 H Blood Pressure [Right Arm] Blood Pressure Mean 127 Blood Pressure Mean [Right Arm] Pulse Oximetry 93 92 Oxygen Delivery Method Nasal Cannula Nasal Cannula Oxygen Flow Rate 3 3 Sepsis Recent Fever Within 48 Hours Sepsis New/Unexplained Change in Mental Status Sepsis Action Taken by Nursing Oxygen Flow Rate - Titration Pulse Oximetry Post Tiitration 05/29/20 19:15 05/29/20 19:30 05/29/20 19:31 Temperature Temperature Source Pulse Rate Pulse Rate [Apical] Pulse Rate from SpO2 Sensor 116 H 121 H 119 H Respiratory Rate 25 H 35 H 19 Respiratory Effort / Characteristics Blood Pressure 198/121 H Blood Pressure [Right Arm] Blood Pressure Mean 146 Blood Pressure Mean [Right Arm] Pulse Oximetry 92 86 L 88 L Oxygen Delivery Method Nasal Cannula Nasal Cannula Nasal Cannula Oxygen Flow Rate 3 0 0 Sepsis Recent Fever Within 48 Hours Sepsis New/Unexplained Change in Mental Status Sepsis Action Taken by Nursing Oxygen Flow Rate - Titration Pulse Oximetry Post Tiitration Laboratory Data Result diagrams: 05/29/20 17:20 05/29/20 17:20 Lab Results 03/17/21 03/17/21 03/17/21 Range/Units 17:20 17:20 17:20 WBC 12.21 H (4.8-10.8) K/uL RBC 4.41 (4.2-5.4) M/uL Hgb 13.4 (12.0-16.0) g/dL POC Hgb (12.0-16.0) g/dl Hct 38.4 (37-47) % POC Hct (37-47) % MCV 87.1 (80-100) fL MCH 30.4 (25-34) pg MCHC 34.9 (32-36) g/dL RDW Std Deviation 48.4 H (36.4-46.3) fL RDW Coeff of Jb 15.1 H (11.5-14.5) % Plt Count 241 (130-400) K/uL MPV 10.4 (7.4-10.4) fL Immature Gran % (Auto) 0.4 % Neut % (Auto) 68.2 % Lymph % (Auto) 25.2 % Burnett % (Auto) 5.9 % Eos % (Auto) 0.1 % Baso % (Auto) 0.2 % Neut # (Auto) 8.33 H (1.4-6.5) K/uL Lymph # (Auto) 3.08 (1.2-3.4) K/uL Burnett # (Auto) 0.72 H (0.11-0.59) K/uL Eos # (Auto) 0.01 (0-0.5) K/uL Baso # (Auto) 0.02 (0-0.2) K/uL Immature Gran # (Auto) 0.05 H (0.00-0.02) K/uL PT 11.4 (9.0-12.0) Seconds INR 1.1 (0.9-1.1) APTT 23.0 (21.0-31.0) Seconds PTT Ratio 0.9 POC Sodium (135-144) mmol/L Sodium 136 (136-145) mmol/L POC Potassium (3.3-5.0) mmol/L Potassium 4.1 (3.5-5.1) mmol/L POC Chloride (101-112) mmol/L Chloride 104 (98-107) mmol/L Carbon Dioxide 20 L (21-32) mmol/L POC Total CO2 (24-31) mmol/L Anion Gap 12.0 H (3-11) POC Anion Gap (16-25) mmol/L POC BUN (7-18) mg/dl BUN 16 (7-18) mg/dl Creatinine 1.05 (0.6-1.2) mg/dl POC Creatinine (0.6-1.3) mg/dl Est Cr Clr Drug Dosing 70.5 ml/min Est GFR ( Amer) 66.4 Est GFR (Non-Af Amer) 57.3 BUN/Creatinine Ratio 15.3 (10-20) Glucose 381 H* (70-99) mg/dl POC Glucose (other) (70-99) mg/dl Calcium 9.3 (8.5-10.1) mg/dl POC Ioniz Calcium [place]ush[place] (1.12-1.32) mmol/l Magnesium 1.8 (1.8-2.4) mg/dl Total Bilirubin 0.8 (0.2-1) mg/dl AST 25 (15-37) U/L ALT 39 (12-78) U/L Alkaline Phosphatase 94 (45-117) U/L Troponin I 0.063 H* (0-0.045) ng/ml NT-Pro-B Natriuret Pep 4780 H (0-900) pg/ml Total Protein 7.3 (6.4-8.2) gm/dl Albumin 3.4 (3.4-5.0) gm/dl Globulin 3.9 (2.5-4.0) gm/dl Albumin/Globulin Ratio 0.9 (0.9-2) Lipase 42 L (73-393) U/L Beta-Hydroxybutyric Acd 11.60 H (0.2-2.81) mg/dl Urine Color Urine Appearance (Clear) Urine pH (4.5-7.5) Ur Specific [place] (1.000-1.030) Urine Protein (Negative) Urine Glucose (UA) (Negative) Urine Ketones (Negative) Urine Blood (Negative) Urine Nitrite (Negative) Urine Bilirubin (Negative) Urine Urobilinogen (Negative) Ur Leukocyte Esterase (Negative) Urine WBC (Auto) (0-5) /hpf Urine RBC (Auto) (0-4) /hpf U Hyaline Cast (Auto) (0-5) /lpf U Epithel Cells (Auto) (0-5) /lpf Urine Bacteria (Auto) (Negative) COVID-19 Eval Order SARS-CoV-2, RNA, NAAT (NEGATIVE) 05/29/20 05/29/20 05/29/20 Range/Units 17:29 18:12 18:12 WBC (4.8-10.8) K/uL RBC (4.2-5.4) M/uL Hgb (12.0-16.0) g/dL POC Hgb 13.9 (12.0-16.0) g/dl Hct (37-47) % POC Hct 41 (37-47) % MCV (80-100) fL MCH (25-34) pg MCHC (32-36) g/dL RDW Std Deviation (36.4-46.3) fL RDW Coeff of Jb (11.5-14.5) % Plt Count (130-400) K/uL MPV (7.4-10.4) fL Immature Gran % (Auto) % Neut % (Auto) % Lymph % (Auto) % Burnett % (Auto) % Eos % (Auto) % Baso % (Auto) % Neut # (Auto) (1.4-6.5) K/uL Lymph # (Auto) (1.2-3.4) K/uL Burnett # (Auto) (0.11-0.59) K/uL Eos # (Auto) (0-0.5) K/uL Baso # (Auto) (0-0.2) K/uL Immature Gran # (Auto) (0.00-0.02) K/uL PT (9.0-12.0) Seconds INR (0.9-1.1) APTT (21.0-31.0) Seconds PTT Ratio POC Sodium 135 (135-144) mmol/L Sodium (136-145) mmol/L POC Potassium 4.1 (3.3-5.0) mmol/L Potassium (3.5-5.1) mmol/L POC Chloride 104 (101-112) mmol/L Chloride (98-107) mmol/L Carbon Dioxide (21-32) mmol/L POC Total CO2 22 L (24-31) mmol/L Anion Gap (3-11) POC Anion Gap 14.0 L (16-25) mmol/L POC BUN 16 (7-18) mg/dl BUN (7-18) mg/dl Creatinine (0.6-1.2) mg/dl POC Creatinine 0.7 (0.6-1.3) mg/dl Est Cr Clr Drug Dosing ml/min Est GFR ( Amer) Est GFR (Non-Af Amer) BUN/Creatinine Ratio (10-20) Glucose (70-99) mg/dl POC Glucose (other) 390 H* (70-99) mg/dl Calcium (8.5-10.1) mg/dl POC Ioniz Calcium [place] 1.10 L (1.12-1.32) mmol/l Magnesium (1.8-2.4) mg/dl Total Bilirubin (0.2-1) mg/dl AST (15-37) U/L ALT (12-78) U/L Alkaline Phosphatase (45-117) U/L Troponin I (0-0.045) ng/ml NT-Pro-B Natriuret Pep (0-900) pg/ml Total Protein (6.4-8.2) gm/dl Albumin (3.4-5.0) gm/dl Globulin (2.5-4.0) gm/dl Albumin/Globulin Ratio (0.9-2) Lipase (73-393) U/L Beta-Hydroxybutyric Acd (0.2-2.81) mg/dl Urine Color Urine Appearance (Clear) Urine pH (4.5-7.5) Ur Specific [place] (1.000-1.030) Urine Protein (Negative) Urine Glucose (UA) (Negative) Urine Ketones (Negative) Urine Blood (Negative) Urine Nitrite (Negative) Urine Bilirubin (Negative) Urine Urobilinogen (Negative) Ur Leukocyte Esterase (Negative) Urine WBC (Auto) (0-5) /hpf Urine RBC (Auto) (0-4) /hpf U Hyaline Cast (Auto) (0-5) /lpf U Epithel Cells (Auto) (0-5) /lpf Urine Bacteria (Auto) (Negative) COVID-19 Eval Order Covid19 IDNow atMMNC SARS-CoV-2, RNA, NAAT NEGATIVE (NEGATIVE) 05/29/20 Range/Units 18:37 WBC (4.8-10.8) K/uL RBC (4.2-5.4) M/uL Hgb (12.0-16.0) g/dL POC Hgb (12.0-16.0) g/dl Hct (37-47) % POC Hct (37-47) % MCV (80-100) fL MCH (25-34) pg MCHC (32-36) g/dL RDW Std Deviation (36.4-46.3) fL RDW Coeff of Jb (11.5-14.5) % Plt Count (130-400) K/uL MPV (7.4-10.4) fL Immature Gran % (Auto) % Neut % (Auto) % Lymph % (Auto) % Burnett % (Auto) % Eos % (Auto) % Baso % (Auto) % Neut # (Auto) (1.4-6.5) K/uL Lymph # (Auto) (1.2-3.4) K/uL [place] # (Auto) (0.11-0.59) K/uL Eos # (Auto) (0-0.5) K/uL Baso # (Auto) (0-0.2) K/uL Immature Gran # (Auto) (0.00-0.02) K/uL PT (9.0-12.0) Seconds INR (0.9-1.1) APTT (21.0-31.0) Seconds PTT Ratio POC Sodium (135-144) mmol/L Sodium (136-145) mmol/L POC Potassium (3.3-5.0) mmol/L Potassium (3.5-5.1) mmol/L POC Chloride (101-112) mmol/L Chloride (98-107) mmol/L Carbon Dioxide (21-32) mmol/L POC Total CO2 (24-31) mmol/L Anion Gap (3-11) POC Anion Gap (16-25) mmol/L POC BUN (7-18) mg/dl BUN (7-18) mg/dl Creatinine (0.6-1.2) mg/dl POC Creatinine (0.6-1.3) mg/dl Est Cr Clr Drug Dosing ml/min Est GFR ( Amer) Est GFR (Non-Af Amer) BUN/Creatinine Ratio (10-20) Glucose (70-99) mg/dl POC Glucose (other) (70-99) mg/dl Calcium (8.5-10.1) mg/dl POC Ioniz Calcium [place]ush[place] (1.12-1.32) mmol/l Magnesium (1.8-2.4) mg/dl Total Bilirubin (0.2-1) mg/dl AST (15-37) U/L ALT (12-78) U/L Alkaline Phosphatase (45-117) U/L Troponin I (0-0.045) ng/ml NT-Pro-B Natriuret Pep (0-900) pg/ml Total Protein (6.4-8.2) gm/dl Albumin (3.4-5.0) gm/dl Globulin (2.5-4.0) gm/dl Albumin/Globulin Ratio (0.9-2) Lipase (73-393) U/L Beta-Hydroxybutyric Acd (0.2-2.81) mg/dl Urine Color Yellow Urine Appearance Clear (Clear) Urine pH 5.5 (4.5-7.5) Ur Specific [place] > 1.045 H (1.000-1.030) Urine Protein 3+ H (Negative) Urine Glucose (UA) 3+ H (Negative) Urine Ketones 2+ H (Negative) Urine Blood Trace H (Negative) Urine Nitrite Positive A (Negative) Urine Bilirubin Negative (Negative) Urine Urobilinogen Negative (Negative) Ur Leukocyte Esterase Negative (Negative) Urine WBC (Auto) 5-10 H (0-5) /hpf Urine RBC (Auto) 0-4 (0-4) /hpf U Hyaline Cast (Auto) 10-30 H (0-5) /lpf U Epithel Cells (Auto) >30 H (0-5) /lpf Urine Bacteria (Auto) 4+ H (Negative) COVID-19 Eval Order SARS-CoV-2, RNA, NAAT (NEGATIVE) Administered Medications Heparin Sodium/Dextrose (Heparin Sodium/Dextrose) 25,000 units in 500 mls @ 28 mls/hr IV .[id number] [facility]; Protocol Stop: 06/28/20 18:14 Last Admin: 05/29/20 18:46 Dose: 1,400 units/hr, 28 mls/hr Documented by: [id number] Cosigned by: [id number] Insulin Human Regular 250 (units/ Sodium Chloride) 250 mls @ 2.8 mls/hr IV .Q24H [facility]; Protocol Stop: 06/28/20 21:44 Last Admin: 05/29/20 22:55 Dose: 2.8 units/hr, 2.8 mls/hr Documented by: [id number] Cosigned by: [id number] Ciprofloxacin (Cipro / D5w) 400 mg in 200 mls @ 100 mls/hr IV Q12H [facility]; Protocol Stop: 06/08/20 21:59 Last Admin: 05/29/20 23:05 Dose: 100 mls/hr Documented by: [id number] Pregabalin (Pregabalin 100 Mg Cap) 100 mg PO BID [facility] Stop: 06/28/20 20:59 Last Admin: 05/29/20 22:49 Dose: 100 mg Documented by: [id number] Venlafaxine HCl (Venlafaxine Hcl Xr 150 Mg Capxr) 150 mg PO BID [facility] Stop: 06/28/20 20:59 Last Admin: 05/29/20 22:49 Dose: 150 mg Documented by: [id number] Discontinued Medications Albuterol (Albut/Ipratrop 3mg/0.5mg Neb 3 Ml Vial) 3 ml INH NOW STA Stop: 05/29/20 17:13 Last Admin: 05/29/20 18:45 Dose: 3 ml Documented by: [id number] Heparin Sodium (Porcine) (Heparin Bolus Ed Use Only) 6,000 units IV NOW STA Stop: 05/29/20 18:17 Last Admin: 05/29/20 18:46 Dose: 6,000 units Documented by: [id number] Cosigned by: [id number] Heparin Sodium/Dextrose (Heparin Iv Standard With Bolus) 1 ea IV NOW STA; Protocol Stop: 05/29/20 18:14 Last Admin: 05/29/20 18:46 Dose: 1 ea Documented by: [id number] Sodium Chloride (Nss 1000ml) 1,000 mls @ 999 mls/hr IV .Q1H1M ONE Stop: 05/29/20 22:24 Last Admin: 05/29/20 22:49 Dose: 999 mls/hr Documented by: [id number] Insulin Human Regular 5 units/ (Syringe) 5 mls @ 0 mls/min IV ONE ONE Stop: 05/29/20 21:46 Last Admin: 05/29/20 22:53 Dose: 1 mls/min Documented by: [id number] Cosigned by: [id number] Ioversol (Optiray 320 125ml) 120 ml IV ONCE ONE Stop: 05/29/20 18:09 Last Admin: 05/29/20 18:09 Dose: 120 ml Documented by: [id number] Discharge Plan Visit Data Chief Complaint: Shortness of Breath/Dyspnea Stated Complaint: SOB, NAUSEA, LIGHT HEADED ED Provider: Mario Odell Discharge Problem: Pulmonary embolism, Hypoxia, Demand ischemia of myocardium Patient Disposition: Admitted As Inpatient Discharge Instructions Interventions: ED Discharge Assessment Last Done: 05/29/20 20:04 Discharge Problem: Pulmonary embolism Qualifiers: Pulmonary embolism type: other Chronicity: acute Acute cor pulmonale presence: unspecified Qualified Code(s): I26.99 - Other pulmonary embolism without acute cor pulmonale
[2020-05-29 17:29] LABS: Basophils # (auto) 0.02 K/uL (0-0.2); Basophils % (auto) 0.2 %; Eosinophils # (auto) 0.01 K/uL (0-0.5); Eosinophils % (auto) 0.1 %; Hematocrit (blood only) 38.4 % (37-47); Hemoglobin 13.4 g/dL (12.0-16.0); Immature Granulocytes # (auto) 0.05 K/uL (0.00-0.02); Immature Granulocytes % (auto) 0.4 %; Lymphocytes # (auto) 3.08 K/uL (1.2-3.4); Lymphocytes % (auto) 25.2 %; Mean Corpuscular Hemoglobin 30.4 pg (25-34); Mean Corpuscular Hgb Conc 34.9 g/dL (32-36); Mean Corpuscular Volume 87.1 fL (80-100); Mean Platelet Volume 10.4 fL (7.4-10.4); Monocytes # (auto) 0.72 K/uL (0.11-0.59); Monocytes % (auto) 5.9 %; Neutrophils # (auto) 8.33 K/uL (1.4-6.5); Neutrophils % (auto) 68.2 %; Platelet Count 241 K/uL (130-400); RDW Coefficient of Variation 15.1 % (11.5-14.5); RDW Standard Deviation 48.4 fL (36.4-46.3); Red Blood Count 4.41 M/uL (4.2-5.4); White Blood Count 12.21 K/uL (4.8-10.8)
[2020-05-29 17:42] LABS: iSTAT Creatinine 0.7 mg/dl (0.6-1.3); iSTAT Hemoglobin 13.9 g/dl (12.0-16.0); iSTAT Ionized Calcium 1.1 mmol/l (1.12-1.32); iSTAT Potassium 4.1 mmol/L (3.3-5.0)
[2020-05-29 17:42] LABS: INR 1.1 (0.9-1.1); Partial Thromboplastin Ratio 0.9; Prothrombin Time 11.4 Seconds (9.0-12.0)
[2020-05-29 17:49] LABS: Albumin Level 3.4 gm/dl (3.4-5.0); BUN Creatinine Ratio 15.3 (10-20); Calcium 9.3 mg/dl (8.5-10.1); Creatinine Clr Calc Pharmacy 70.5 ml/min; Est GFR (African American) 66.4; Est GFR (Non-African American) 57.3; Magnesium 1.8 mg/dl (1.8-2.4); Potassium 4.1 mmol/L (3.5-5.1)
[2020-05-29 18:02] LABS: Bilirubin,Total 0.8 mg/dl (0.2-1); Total Protein 7.3 gm/dl (6.4-8.2)
[2020-05-29 18:03] LABS: Albumin Globulin Ratio 0.9 (0.9-2); Beta-Hydroxybutyrate 11.6 mg/dl (0.2-2.81); Globulin 3.9 gm/dl (2.5-4.0); Troponin I 0.063 ng/ml (0-0.045)
[2020-05-29] MEDS ORDERED: OPTIRAY 320 125ml IV ONE (18:08)
[2020-05-29] MEDS ORDERED: Heparin IV Adult Wt-Based Standard WITH Bolus Protocol IV STA (18:13)
[2020-05-29] MEDS ORDERED: Heparin BOLUS **ED Use Only IV STA (18:16)
--- NOTE | 2020-05-29 18:35 | CT Scan Report ---
CT ANGIOGRAM OF THE CHEST CLINICAL HISTORY: Dyspnea. Hypoxia. COMPARISON STUDY: Chest x-ray dated 02/13/2020. TECHNIQUE: Following the IV administration of 120 cc of Optiray 320, CT angiogram of the chest was pe rformed from the upper abdomen to the thoracic inlet utilizing the pulmonary embolus protocol. Images are reviewed in the axial, sagittal, and coronal planes. 3-D MIPS images are created and assessed. I V contrast was administered without complication. A dose lowering technique was utilized adhering to the principles of ALARA. CT DOSE: 783.68 mGy.cm FINDINGS: Thyroid: Imaged portions of the thyroid gland are normal in size and attenuation. Thoracic aorta: The thoracic aorta is normal in caliber and demonstrates bovine variant arch anatomy. No dissection is seen. Pulmonary vasculature: The pulmonary trunk is mildly dilated measuring 3.2 cm in diameter. There is p ulmonary embolus within the distal right main pulmonary artery. This extends into the right upper, ri ght middle, and right lower lobar pulmonary arteries, and extends peripherally into segmental and sub segmental branches. There is thrombus identified within the distal left main pulmonary artery. This e xtends into the left upper and lower lobar pulmonary arteries as well as the lingular pulmonary arter y. This extends into segmental and subsegmental branches.. Heart: The heart is top normal in size and without pericardial effusion. There are scattered coronary artery calcifications. Lungs and pleural spaces: There is trace right pleural effusion. The trachea and central airways are clear. There is dense airspace consolidation within the superior segment of the right lower lobe. Pat beena ground glass opacities are seen throughout the remainder of the right lower lobe. Patchy airspace consolidation is also identified throughout the left lower lobe and posteriorly within the right mid dle lobe. Mediastinum: A 1.9 x 1.9 cm nodule in the superior mediastinum on image #[id number] may represent a lymph no de or could be of thyroid origin. Kimmy: Clear. Axillae: There is no axillary lymphadenopathy. Upper abdomen: Partially visualized upper abdominal viscera is within normal limits. Skeletal structures: No lytic or blastic bony lesions are seen. Degenerative change is noted througho ut the thoracic spine. There are healed left-sided rib fractures. IMPRESSION: 1. Extensive bilateral pulmonary emboli as above. 2. There is dense airspace consolidation in the right upper lobe, with milder groundglass change thro ughout the remainder of the right lower lobe. Patchy airspace consolidation is also seen in the left lower lobe and the right middle lobe. This is nonspecific, but likely represents pulmonary infarcts g iven the extensive pulmonary emboli. Correlate clinically for evidence of a superimposed infectious/i nflammatory pneumonitis. Radiographic follow-up to resolution is recommended. 3. Trace right pleural effusion. 4. A 1.9 cm nodule in the superior centimeters pathologically indeterminant and could represent the e nlarged lymph node or could potentially be thyroid in origin. Consider 3-[address] follow-up for maris ssessment. ACT 112: Positive. There are findings on this exam that require communication between the performing entity and the patient following Patient Test Result Information Act ([place] Act 112) guidelines. Electronically signed by: Thom Castro M.D. 05/29/2020 6:34 PM
--- NOTE | 2020-05-29 18:45 | History & Physical Report ---
Date of Service May 29, 2020 Assessment & Plan (1) Bilateral pulmonary embolism: IV heparin standard bolus and drip. Given mixed connective tissue disorder we will send off antiphospholipid antibodies (will also need to repeat in 3 months). 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 She will need lifelong anticoagulation due to recurrent pulmonary embolism and unprovoked nature of current PEs TTE to assess for right heart strain - right axis deviation noted on EKG (2) Hypoxia: No respiratory failure on admission Aim O2 sats greater than 94%. (3) Diabetic ketoacidosis: Ketones in urine, bicarb 20, anion gap 12 NSS bolus 1L, will avoid aggressive fluid resuscitation given T2DM and need to avoid cardiogenic shock in setting of pulmonary emboli. Insulin IV drip as discussed with pharmacy (4) Diabetes mellitus, type 2: HbA1c with a.m. labs. Hold glimepiride Management with insulin IV drip as above (5) Urinary tract infection: No definitive symptoms of this except for non-specific b/l CVA tenderness which would be unusual for PEs given location of pulmonary infarction. UA grossly positive for bacteria although may also be contaminant. Cover for UTI with ciprofloxacin pending urine and blood cultures (6) Hypertension: Hold amlodipine and lisinopril to avoid hypotension in the setting of bilateral PEs. May be restarted if blood pressure stable in a.m. (7) Hyperlipidemia: Noted history of this not on statins (8) Severe obstructive sleep apnea: May use own CPAP HS (9) Fibromyalgia: Continue venlafaxine 150 mg p.o. twice daily and pregabalin 100 mg p.o. twice daily Admission and Anticipated Discharge Date Admission Date: May 29, 2020 History of Present Illness Chief Complaint: Shortness of breath Primary Care Provider: Yobani Hernandez MD Carly Lopes is a 59-year-old female who presents to the ER with increasing shortness of breath and chest pain. This may have been progressing for some time as she has intercostal neuralgia and has been putting her pleuritic chest pain down to this. She did manage to go for a mile walk 3 days ago and was more winded than she usually is but appeared to be better yesterday and felt this may have just been due to deconditioning. She also noticed decreased exercise tolerance 3 weeks ago on a 3 mile hike. Today she reports being significantly short of breath especially on exertion. No improvement with her albuterol inhaler. In the ER she was diagnosed with bilateral pulmonary emboli with pulmonary infarction. She denies any recent surgeries, leg swelling or long-haul travel. She regularly exercises on an exercise bike. She has had 1 prior episode of pulmonary emboli related to oral contraceptive pills and smoking at that time. No COVID-19 pneumonia or symptoms suggestive of this. She does note a significant history of 7 miscarriages with one full-term . No known medical reason for her miscarriages although she does have a diagnosis of mixed connective tissue disorder. She was started on a heparin IV drip in the emergency room. She was also noted to be hyperglycemic with an elevated anion gap. She does report missing her usual morning dose of Levemir today. She reports glucose usually runs around 140. UA grossly appeared infected. She denies any dysuria, change in urinary frequency/smell/color. She does note bilateral flank pain which has been new in the last few days. She denies any fevers or chills. She was referred to medicine for admission ongoing management of bilateral PEs. Allergies Allergy/AdvReac Type Severity Reaction Status Date / Time aspirin Allergy Severe STOMACH Verified 05/22/20 09:15 UPSET AND ANAPHYLAXIS Penicillins Allergy Severe ANAPHYLAXIS Verified 05/22/20 09:15 AND RASH rofecoxib Allergy Severe ANAPHYLAXIS Verified 05/22/20 09:15 pollen extracts Allergy Unknown SINUS Verified 05/22/20 09:15 CONGESTION, ITCHY THROAT, WATERY EYES tomato AdvReac Mild nausea/vomi Verified 05/22/20 09:15 ting Vioxx Allergy Uncoded 05/22/20 09:15 Home Medications Medication Instructions Recorded Confirmed Type Benefiber Healthy Shape 5 g PO QAM 10/06/18 05/29/20 History Levemir FlexTouch U-100 Insuln 15 unit SUBCUT AMPM 10/06/18 05/29/20 History albuterol sulfate [ProAir HFA] 2 puff INHALATION Q6H PRN 10/06/18 05/29/20 History amlodipine 10 mg PO QAM 10/06/18 05/29/20 History clindamycin phosphate 1 applic TOPICAL DAILY PRN 10/06/18 05/29/20 History clobetasol 1 applic TOPICAL DAILY PRN 10/06/18 05/29/20 History ergocalciferol (vitamin D2) 50,000 unit PO WK 10/06/18 05/29/20 History glimepiride 2 mg PO QAM 10/06/18 05/29/20 History insulin lispro [Humalog KwikPen 0 unit SUBCUT TIDM 10/06/18 05/29/20 History Insulin] lisinopril 10 mg PO QAM 10/06/18 05/29/20 History prochlorperazine maleate 10 mg PO UD PRN 10/06/18 05/29/20 History [Compazine] riboflavin (vitamin B2) 400 mg PO QAM 10/06/18 05/29/20 History tramadol 50 mg PO TID PRN 10/06/18 05/29/20 History venlafaxine 150 mg PO AMPM 10/06/18 05/29/20 History uorxjeuuls-gcwoflfzurits-nmitzmzp 1 tab PO Q4H PRN 06/08/19 05/29/20 History 50 mg-325 mg-40 mg tablet magnesium oxide 500 mg capsule 500 mg PO DAILY 06/08/19 05/29/20 History ondansetron HCl 8 mg tablet 8 mg PO TID 06/08/19 05/29/20 History pregabalin 100 mg capsule 100 mg PO BID #60 cap 04/12/20 05/29/20 Rx diclofenac sodium 50 mg 50 mg PO BID #60 tab 04/29/20 05/29/20 Rx tablet,delayed release Past Med/Surg History Medical History Acute diverticulitis Anemia Cataracts, both eyes Deep vein thrombosis Difficult airway for intubation Gastroenteritis H. pylori infection History of anesthesia reaction Post concussion syndrome Pulmonary embolism Right upper quadrant abdominal pain Right-sided thoracic back pain Surgical History History of cholecystectomy History of colonoscopy History of dilatation and curettage History of esophagogastroduodenoscopy (EGD) History of left breast biopsy History of ovarian cystectomy History of phacoemulsification of cataract of both eyes with intraocular lens implantation History of repair of right rotator cuff History of wisdom tooth extraction Family History Mother Family history of diabetes mellitus Grandmother (Maternal) Family history of diabetes mellitus Grandfather (Paternal) Family history of diabetes mellitus Aunt Family history of diabetes mellitus Family/Other Family history of diabetes mellitus cousins Other No family history of adverse response to anesthesia Social History Smoking Status: Former smoker Second Hand Exposure: Yes (father/relatives smoked); Hx Alcohol Use: Yes Alcohol type: beer, wine and hard liquor Hx Substance Use: No Preferred Language: Amharic Communication Ability: Effective Cashier General Required: No Beliefs That Will Affect Care: Restorationism Restorationism Beliefs: Religious--will receive Blood Products Current Living Situation: Spouse Other Information That Helps Us Care for You: No Feels Safe at Home: Yes Safety Concerns: Feels Safe At This Time Assistive Devices: Oxygen - Continuous Review of Systems Review of Systems: All systems reviewed & are unremarkable except as noted in HPI & below Physical Exam Constitutional: well developed and well nourished; no acute distress Eyes: + anicteric sclerae; normal pupil size ENMT: external ear and nose normal, oropharynx normal Neck: trachea midline, no thyromegaly Respiratory: normal respiratory effort; no labored breathing Auscultation: + crackles (Few right-sided); no wheezes Cardiovascular: Rate/Rhythm: regular rhythm and + tachycardic Heart Sounds: no murmur Vessels: no JVD Extremities: normal capillary refill; no calf tenderness and no pedal edema Gastrointestinal (Abdomen): normal bowel sounds, soft, nontender, no hepatosplenomegaly Musculoskeletal: no cyanosis or clubbing, extremities motor strength 5/5 Skin: no rashes, warm and dry Neurologic: moves all extremities and awake; no focal motor deficits and not confused Psychiatric: A+Ox3, euthymic affect Genitourinary: + CVA tenderness (Bilateral) Results & Data Results & Data ([facility]) Vital Signs (Past 12 Hours) Vital Signs Temp Pulse Pulse Resp BP BP Pulse Ox 05/29/20 17:06 120 H 18 161/102 H 90 05/29/20 16:54 36.4 C L 128 H 28 H 181/95 H [address] ANGIOGRAM OF THE CHEST IMPRESSION: 1. Extensive bilateral pulmonary emboli as above. 2. There is dense airspace consolidation in the right upper lobe, with milder groundglass change throughout the remainder of the right lower lobe. Patchy airspace consolidation is also seen in the left lower lobe and the right middle lobe. This is nonspecific, but likely represents pulmonary infarcts given the extensive pulmonary emboli. Correlate clinically for evidence of a superimposed infectious/inflammatory pneumonitis. Radiographic follow-up to resolution is recommended. 3. Trace right pleural effusion. 4. A 1.9 cm nodule in the superior centimeters pathologically indeterminant and could represent the enlarged lymph node or could potentially be thyroid in origin. Consider 3-[address] follow-up for reassessment. Medications Administered ER medications given: DuoNeb Heparin standard IV bolus and drip ECG Indication: chest pain and SOB/dyspnea Rate (beats per minute): 120 Findings: + other (Right axis deviation) and + T-wave inversion (Inferior) Comparison ECG Date: from (July 17, 2017) Change: the following changes noted (Increased T wave inversions in inferior leads) Code Status & VTE Plan Code Status Full VTE Prophylaxis Plan VTE Prophylaxis will be ordered: Yes PG Care Time/CCT Total # of Minutes Spent Total Time Spent with Patient: Total time spent is greater than 50% in coordination of care (as documented) at patient's floor/unit and/or counseling patient: Coding Level of Care Code 06007 Initial Inpt Care Lvl 3 Diagnoses Bilateral pulmonary embolism I26.99 Hypoxia R09.02 Diabetic ketoacidosis E11.10 Diabetes mellitus type: type 2 Diabetes mellitus complication detail: without coma Diabetes mellitus, type 2 E11.65; Z79.4 Diabetes mellitus senior living insulin use: with rodent exterminator use Diabetes mellitus complication status: with hyperglycemia Urinary tract infection N39.0 Hypertension I10 Hypertension type: essential hypertension Hyperlipidemia E78.5 Hyperlipidemia type: unspecified Severe obstructive sleep apnea G47.33 Fibromyalgia M79.7 (1) Diabetic ketoacidosis Diabetes mellitus type: type 2 Diabetes mellitus complication detail: without coma Qualified Code(s): E11.10 - Type 2 diabetes mellitus with ketoacidosis without coma (2) Diabetes mellitus, type 2 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
[2020-05-29] MEDS: HEPARIN SODIUM/DEXTROSE 25,000 UNITS/500 ML BAG IV SCH (18:46)
[2020-05-29 18:49] LABS: Appearance Urine Clear (Clear); Bacteria Urine Automated 4+ (Negative); Bilirubin Urine Negative (Negative); Blood Urine Trace (Negative); Color Urine Yellow; Epithelial Cell Urine Auto >30 /lpf (0-5); Glucose Urine UA 3+ (Negative); Ketones Urine 2+ (Negative); Leukocyte Esterase Urine Negative (Negative); Nitrite Urine Positive (Negative); Protein Urine 3+ (Negative); RBC Urine Automated 0-4 /hpf (0-4); Specific Gravity Urine > 1.045 (1.000-1.030); Urobilinogen Urine Negative (Negative); pH Urine 5.5 (4.5-7.5)
[2020-05-29] MEDS ORDERED: ACETAMINOPHEN 325 MG TAB PO PRN (20:33)
[2020-05-29] MEDS ORDERED: ALUMINUM/MAGNESIUM SUSP 30 ML UDC PO PRN (20:33)
[2020-05-29] MEDS ORDERED: POLYETHYLENE (MIRALAX) 17 GM PACK PO PRN (20:33)
[2020-05-29] MEDS ORDERED: ONDANSETRON INJ 2 MG/ML 2 ML VIAL IV PRN (20:33)
[2020-05-29] MEDS ORDERED: PHARMACY GLYCEMIC MGMT CONSULT PRN (20:58)
[2020-05-29] MEDS ORDERED: SODIUM CHLORIDE 0.9% 1000ML 1,000 ML IV ONE (21:24)
[2020-05-29] MEDS ORDERED: CLOBETASOL PROPIONATE 0.05% OINT 15 GM TUBE EXT PRN (21:35)
[2020-05-29] MEDS ORDERED: DEXTROSE 50% 50 ML SYRINGE IV PRN (21:45)
[2020-05-29] MEDS ORDERED: GLUCOSE 40% GEL 15 GM TUBE PO PRN (21:45)
[2020-05-29] MEDS ORDERED: INSULIN HUMAN REGULAR IV BOLUS 5 UNITS in SYRINGE 0 ML IV ONE (21:45)
[2020-05-29] MEDS ORDERED: GLUCAGON FOR INJ 1 MG VIAL IM PRN (21:45)
[2020-05-29] MEDS ORDERED: CARBOHYDRATES FOR HYPOGLYCEMIA PO PRN (21:45)
[2020-05-29] MEDS ORDERED: INSULIN REGULAR 250 UNITS in SODIUM CHLORIDE 0.9% 247.5 ML IV SCH (21:45)
[2020-05-29] MEDS ORDERED: GLUCOSE 10 TABS/TUBE PO PRN (21:45)
[2020-05-29] MEDS: VENLAFAXINE HCL XR 150 MG CAPXR PO SCH (22:49)
[2020-05-29] MEDS: PREGABALIN 100 MG CAP PO SCH (22:49)
[2020-05-29] MEDS: CIPROFLOXACIN / D5W 400 MG/200 ML BAG IV SCH (23:05)
[2020-05-30] MEDS: POTASSIUM CHLORIDE 30 MEQ in SODIUM CHLORIDE 0.9% 1000ML 1,000 ML IV SCH ×2 (00:52→08:41)
[2020-05-30 01:06] LABS: Partial Thromboplastin Ratio 2.7
[2020-05-30 01:07] LABS: Partial Thromboplastin Time 71.6 Seconds (21.0-31.0)
[2020-05-30 07:24] LABS: Hematocrit (blood only) 35.3 % (37-47); Hemoglobin 12.2 g/dL (12.0-16.0); Mean Corpuscular Hemoglobin 30.1 pg (25-34); Mean Corpuscular Hgb Conc 34.6 g/dL (32-36); Mean Corpuscular Volume 87.2 fL (80-100); Mean Platelet Volume 10.4 fL (7.4-10.4); Platelet Count 238 K/uL (130-400); RDW Coefficient of Variation 15.3 % (11.5-14.5); RDW Standard Deviation 48.9 fL (36.4-46.3); Red Blood Count 4.05 M/uL (4.2-5.4); White Blood Count 12.19 K/uL (4.8-10.8)
[2020-05-30] MEDS ORDERED: INSULIN ASPART 100 UNITS/ML 3 ML PEN SC SCH (07:30)
[2020-05-30 07:36] LABS: Estimated Average Glucose 171 mg/dl; Hemoglobin A1C 7.6 % (4.5-5.6)
[2020-05-30 07:53] LABS: INR 1.2 (0.9-1.1); Partial Thromboplastin Ratio 2.2; Prothrombin Time 11.9 Seconds (9.0-12.0)
[2020-05-30 07:55] LABS: BUN Creatinine Ratio 16.9 (10-20); Calcium 8.5 mg/dl (8.5-10.1); Creatinine Clr Calc Pharmacy 96.4 ml/min; Est GFR (African American) 93.6; Est GFR (Non-African American) 80.8
[2020-05-30 08:03] LABS: Troponin I 0.103 ng/ml (0-0.045)
[2020-05-30] MEDS: MAGNESIUM OXIDE 400 MG TAB PO SCH (08:12)
[2020-05-30] MEDS: VENLAFAXINE HCL XR 150 MG CAPXR PO SCH ×2 (08:12→21:18)
[2020-05-30] MEDS: PSYLLIUM 58.6% POWDER PACKET PO SCH (08:13)
[2020-05-30] MEDS: PREGABALIN 100 MG CAP PO SCH ×2 (08:16→21:18)
[2020-05-30] MEDS ORDERED: INSULIN DETEMIR FLEXPEN/FLEX TOUCH 100 UNITS/ML 3ML SC ONE (08:30)
[2020-05-30] MEDS ORDERED: DC IV INSULIN INFUSION 1 EA DEVI SCH (09:00)
[2020-05-30] MEDS ORDERED: NON-FORMULARY MEDICATION (Riboflavin (Vitamin B2) 400 mg Tablet) PO SCH (09:00)
[2020-05-30] MEDS: CIPROFLOXACIN / D5W 400 MG/200 ML BAG IV SCH (09:42)
[2020-05-30] MEDS: INSULIN ASPART 100 UNITS/ML 3 ML PEN SC SCH ×3 (11:53→21:17)
--- NOTE | 2020-05-30 12:28 | Hospitalist Progress Note ---
Date of Service May 30, 2020 Assessment & Plan (1) Bilateral pulmonary embolism: IV heparin standard bolus and drip. started on Coumadin 10mg daily, check INR daily given severity of disease will need overlap of 48 hours with heparin change to lovenox 1mg/kg q12 on 05/31 saturating well on 2L, no distress at rest, gets short of breath on exertion, sinus tachycardia on exertion echocardiogram with normal EF at 65%, RV normal size, mild reduction in systolic function, no major signs of right heart strain pain associated with pulmonary infarcts, no signs of infection at this time use Ultram PRN for pain likely here another 24-48 hours, will need to work with CM to set up with coagulation clinic (2) Hypoxia: initially on 4L, quickly down to 2L today, no distress gets short of breath on exertion but not at rest try to titrate to room air (3) Diabetic ketoacidosis: Ketones in urine, bicarb 20, anion gap 12 at time of admission likely caused by stress of pulmonary embolism and infarcts quickly resolved with insulin drip, converted to basal bolus dosing this morning diabetic diet, monitor sugars closely (4) Diabetes mellitus, type 2: HbA1c is in 7 range, well controlled normally Hold glimepiride Management with insulin drip initially, now basal bolus monitor for hypoglycemia (5) Urinary tract infection: No definitive symptoms of this except for non-specific b/l CVA tenderness which would be unusual for PEs given location of pulmonary infarction. UA grossly positive for bacteria although may also be contaminant. stop Cipro, no signs of infection UTI ruled out (6) Hypertension: Hold amlodipine and lisinopril to avoid hypotension in the setting of bilateral PEs BP is stable (7) Hyperlipidemia: Noted history of this not on statins (8) Severe obstructive sleep apnea: May use own CPAP HS concerned about insomnia, had difficult time sleeping last night give Ativan 0.5mg HS and if she cannot sleep after 30 minutes then give additional 0.5mg (9) Fibromyalgia: Continue venlafaxine 150 mg p.o. twice daily and pregabalin 100 mg p.o. twice daily Admission and Anticipated Discharge Date Admission Date: May 29, 2020 Subjective patient feeling a little better, breathing is stable at rest but she gets short of breath on exertion, HR up to 130's but goes back to 100's at rest she c/o pain in chest, shoulder, back discussed that she has been having symptoms of shortness of breath on exertion for some time, at least a few weeks she noticed that when she would take walks she could not go as far as normal and her times on the elliptical were far less she kept shrugging it off, pushing through the dyspnea, busy at work it reached a breaking point yesterday when she was extremely short of breath just walking up half a flight of stairs in her home at this point she came to the emergency room discussed prior history of pulmonary embolism, she was in her 20's, she was on oral control and smoking cigarettes at that time 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, no history of arterial thrombus such as clots she took Coumadin for a while in her 20's then drank clover tea as an alternative discussed that she will need to be on Coumadin given severity of clots, will need to be on heparin for 48 hours even after INR is > 2 can change to Lovenox shots tomorrow so maybe she can see how to administer at home she asked about the antiphospholipid work up, said she can follow up certainly could follow up with director multimedia in a few weeks Review of Systems Review of Systems: All systems reviewed & are unremarkable except as noted in Subjective Constitutional: no fever, no chills, no sweats, no fatigue and no weakness Respiratory: + cough, + dyspnea on exertion and + pain with cough; no dyspnea and no wheezing Cardiovascular: + chest pain, + dyspnea and + dyspnea on exertion; no palpitations, no syncope and no edema Gastrointestinal: no abdominal pain, no nausea, no vomiting, no constipation and no diarrhea/loose stools Physical Exam Constitutional: well developed, comfortable and + overweight; no acute distress Neck: trachea midline, no thyromegaly Respiratory: normal respiratory effort, lungs clear to auscultation Cardiovascular: RRR, no murmur, no edema Gastrointestinal (Abdomen): normal bowel sounds, soft, nontender, no hepatosplenomegaly Musculoskeletal: no cyanosis or clubbing, extremities motor strength 5/5 Skin: no rashes, warm and dry Neurologic: patellar DTR's 2+ bilat, sensation intact and PERRL, EOMI, accommodation nl, no face palsy, no dysarthria Psychiatric: A+Ox3, euthymic affect Lymphatic: no cervical or axillary lymphadenopathy Results & Data Results & Data ([facility]) Vital Signs (Past 12 Hours) Vital Signs Temp Pulse Resp BP Pulse Ox 05/30/20 08:11 36.6 C 105 H 18 140/98 92 05/30/20 04:50 36.7 C 95 H 20 138/84 95 Laboratory Results Laboratory Results - last 24 hr 05/29/20 05/29/20 05/29/20 17:20 17:20 17:20 WBC 12.21 H RBC 4.41 Hgb 13.4 POC Hgb Hct 38.4 POC Hct MCV 87.1 MCH 30.4 MCHC 34.9 RDW Std Deviation 48.4 H RDW Coeff of Jb 15.1 H Plt Count 241 MPV 10.4 Immature Gran % (Auto) 0.4 Neut % (Auto) 68.2 Lymph % (Auto) 25.2 Pepin % (Auto) 5.9 Eos % (Auto) 0.1 Baso % (Auto) 0.2 Neut # (Auto) 8.33 H Lymph # (Auto) 3.08 Pepin # (Auto) 0.72 H Eos # (Auto) 0.01 Baso # (Auto) 0.02 Immature Gran # (Auto) 0.05 H PT 11.4 INR 1.1 APTT 23.0 PTT Ratio 0.9 POC Sodium Sodium 136 POC Potassium Potassium 4.1 POC Chloride Chloride 104 Carbon Dioxide 20 L POC Total CO2 Anion Gap 12.0 H POC Anion Gap POC BUN BUN 16 Creatinine 1.05 POC Creatinine Est Cr Clr Drug Dosing 70.5 Est GFR ( Amer) 66.4 Est GFR (Non-Af Amer) 57.3 BUN/Creatinine Ratio 15.3 Glucose 381 H* POC Glucose POC Glucose (other) Estimat Average Glucose Hemoglobin A1c Calcium 9.3 POC Ioniz Calcium [place] Magnesium 1.8 Total Bilirubin 0.8 AST 25 ALT 39 Alkaline Phosphatase 94 Troponin I 0.063 H* NT-Pro-B Natriuret Pep 4780 H Total Protein 7.3 Albumin 3.4 Globulin 3.9 Albumin/Globulin Ratio 0.9 Lipase 42 L Beta-Hydroxybutyric Acd 11.60 H Urine Color Urine Appearance Urine pH Ur Specific [place] Urine Protein Urine Glucose (UA) Urine Ketones Urine Blood Urine Nitrite Urine Bilirubin Urine Urobilinogen Ur Leukocyte Esterase Urine WBC (Auto) Urine RBC (Auto) U Hyaline Cast (Auto) U Epithel Cells (Auto) Urine Bacteria (Auto) Beta-2-GPI IgG Ab Beta-2-GPI IgM Ab Anti-Cardiolipin IgG Ab Anti-Cardiolipin IgM Ab COVID-19 Eval Order Hepatitis C Ab Screen SARS-CoV-2, RNA, NAAT 05/29/20 05/29/20 05/29/20 17:29 18:12 18:12 WBC RBC Hgb POC Hgb 13.9 Hct POC Hct 41 MCV MCH MCHC RDW Std Deviation RDW Coeff of Jb Plt Count MPV Immature Gran % (Auto) Neut % (Auto) Lymph % (Auto) Pepin % (Auto) Eos % (Auto) Baso % (Auto) Neut # (Auto) Lymph # (Auto) Pepin # (Auto) Eos # (Auto) Baso # (Auto) Immature Gran # (Auto) PT INR APTT PTT Ratio POC Sodium 135 Sodium POC Potassium 4.1 Potassium POC Chloride 104 Chloride Carbon Dioxide POC Total CO2 22 L Anion Gap POC Anion Gap 14.0 L POC BUN 16 BUN Creatinine POC Creatinine 0.7 Est Cr Clr Drug Dosing Est GFR ( Amer) Est GFR (Non-Af Amer) BUN/Creatinine Ratio Glucose POC Glucose POC Glucose (other) 390 H* Estimat Average Glucose Hemoglobin A1c Calcium POC Ioniz Calcium [place] 1.10 L Magnesium Total Bilirubin AST ALT Alkaline Phosphatase Troponin I NT-Pro-B Natriuret Pep Total Protein Albumin Globulin Albumin/Globulin Ratio Lipase Beta-Hydroxybutyric Acd Urine Color Urine Appearance Urine pH Ur Specific [place] Urine Protein Urine Glucose (UA) Urine Ketones Urine Blood Urine Nitrite Urine Bilirubin Urine Urobilinogen Ur Leukocyte Esterase Urine WBC (Auto) Urine RBC (Auto) U Hyaline Cast (Auto) U Epithel Cells (Auto) Urine Bacteria (Auto) Beta-2-GPI IgG Ab Beta-2-GPI IgM Ab Anti-Cardiolipin IgG Ab Anti-Cardiolipin IgM Ab COVID-19 Eval [facility] C Ab Screen SARS-CoV-2, RNA, NAAT NEGATIVE 05/29/20 05/29/20 05/29/20 18:37 20:06 22:48 WBC RBC Hgb POC Hgb Hct POC Hct MCV MCH MCHC RDW Std Deviation RDW Coeff of Jb Plt Count MPV Immature Gran % (Auto) Neut % (Auto) Lymph % (Auto) Pepin % (Auto) Eos % (Auto) Baso % (Auto) Neut # (Auto) Lymph # (Auto) Pepin # (Auto) Eos # (Auto) Baso # (Auto) Immature Gran # (Auto) PT INR APTT PTT Ratio POC Sodium Sodium POC Potassium Potassium POC Chloride Chloride Carbon Dioxide POC Total CO2 Anion Gap POC Anion Gap POC BUN BUN Creatinine POC Creatinine Est Cr Clr Drug Dosing Est GFR ( Amer) Est GFR (Non-Af Amer) BUN/Creatinine Ratio Glucose POC Glucose 291 H POC Glucose (other) Estimat Average Glucose Hemoglobin A1c Calcium POC Ioniz Calcium [place] Magnesium Total Bilirubin AST ALT Alkaline Phosphatase Troponin I NT-Pro-B Natriuret Pep Total Protein Albumin Globulin Albumin/Globulin Ratio Lipase Beta-Hydroxybutyric Acd Urine Color Yellow Urine Appearance Clear Urine pH 5.5 Ur Specific [place] > 1.045 H Urine Protein 3+ H Urine Glucose (UA) 3+ H Urine Ketones 2+ H Urine Blood Trace H Urine Nitrite Positive A Urine Bilirubin Negative Urine Urobilinogen Negative Ur Leukocyte Esterase Negative Urine WBC (Auto) 5-10 H Urine RBC (Auto) 0-4 U Hyaline Cast (Auto) 10-30 H U Epithel Cells (Auto) >30 H Urine Bacteria (Auto) 4+ H Beta-2-GPI IgG Ab Pending Beta-2-GPI IgM Ab Pending Anti-Cardiolipin IgG Ab Pending Anti-Cardiolipin IgM Ab Pending COVID-19 Eval Order Hepatitis C Ab Screen SARS-CoV-2, RNA, NAAT 05/29/20 05/30/20 05/30/20 23:52 00:34 00:52 WBC RBC Hgb POC Hgb Hct POC Hct MCV MCH MCHC RDW Std Deviation RDW Coeff of Jb Plt Count MPV Immature Gran % (Auto) Neut % (Auto) Lymph % (Auto) Pepin % (Auto) Eos % (Auto) Baso % (Auto) Neut # (Auto) Lymph # (Auto) Pepin # (Auto) Eos # (Auto) Baso # (Auto) Immature Gran # (Auto) PT INR APTT 71.6 H* PTT Ratio 2.7 POC Sodium Sodium POC Potassium Potassium POC Chloride Chloride Carbon Dioxide POC Total CO2 Anion Gap POC Anion Gap POC BUN BUN Creatinine POC Creatinine Est Cr Clr Drug Dosing Est GFR ( Amer) Est GFR (Non-Af Amer) BUN/Creatinine Ratio Glucose POC Glucose 234 H 223 H POC Glucose (other) Estimat Average Glucose Hemoglobin A1c Calcium POC Ioniz Calcium [place] Magnesium Total Bilirubin AST ALT Alkaline Phosphatase Troponin I NT-Pro-B Natriuret Pep Total Protein Albumin Globulin Albumin/Globulin Ratio Lipase Beta-Hydroxybutyric Acd Urine Color Urine Appearance Urine pH Ur Specific [place] Urine Protein Urine Glucose (UA) Urine Ketones Urine Blood Urine Nitrite Urine Bilirubin Urine Urobilinogen Ur Leukocyte Esterase Urine WBC (Auto) Urine RBC (Auto) U Hyaline Cast (Auto) U Epithel Cells (Auto) Urine Bacteria (Auto) Beta-2-GPI IgG Ab Beta-2-GPI IgM Ab Anti-Cardiolipin IgG Ab Anti-Cardiolipin IgM Ab COVID-19 Eval Order Hepatitis C Ab Screen SARS-CoV-2, RNA, NAAT 05/30/20 05/30/20 05/30/20 01:51 03:00 04:50 WBC RBC Hgb POC Hgb Hct POC Hct MCV MCH MCHC RDW Std Deviation RDW Coeff of Jb Plt Count MPV Immature Gran % (Auto) Neut % (Auto) Lymph % (Auto) Pepin % (Auto) Eos % (Auto) Baso % (Auto) Neut # (Auto) Lymph # (Auto) Pepin # (Auto) Eos # (Auto) Baso # (Auto) Immature Gran # (Auto) PT INR APTT PTT Ratio POC Sodium Sodium POC Potassium Potassium POC Chloride Chloride Carbon Dioxide POC Total CO2 Anion Gap POC Anion Gap POC BUN BUN Creatinine POC Creatinine Est Cr Clr Drug Dosing Est GFR ( Amer) Est GFR (Non-Af Amer) BUN/Creatinine Ratio Glucose POC Glucose 159 H 153 H 108 H POC Glucose (other) Estimat Average Glucose Hemoglobin A1c Calcium POC Ioniz Calcium [place] Magnesium Total Bilirubin AST ALT Alkaline Phosphatase Troponin I NT-Pro-B Natriuret Pep Total Protein Albumin Globulin Albumin/Globulin Ratio Lipase Beta-Hydroxybutyric Acd Urine Color Urine Appearance Urine pH Ur Specific [place] Urine Protein Urine Glucose (UA) Urine Ketones Urine Blood Urine Nitrite Urine Bilirubin Urine Urobilinogen Ur Leukocyte Esterase Urine WBC (Auto) Urine RBC (Auto) U Hyaline Cast (Auto) U Epithel Cells (Auto) Urine Bacteria (Auto) Beta-2-GPI IgG Ab Beta-2-GPI IgM Ab Anti-Cardiolipin IgG Ab Anti-Cardiolipin IgM Ab COVID-19 Eval Order Hepatitis C Ab Screen SARS-CoV-2, RNA, NAAT 05/30/20 05/30/20 05/30/20 07:07 07:07 07:07 WBC 12.19 H RBC 4.05 L Hgb 12.2 POC Hgb Hct 35.3 L POC Hct MCV 87.2 MCH 30.1 MCHC 34.6 RDW Std Deviation 48.9 H RDW Coeff of Jb 15.3 H Plt Count 238 MPV 10.4 Immature Gran % (Auto) Neut % (Auto) Lymph % (Auto) Pepin % (Auto) Eos % (Auto) Baso % (Auto) Neut # (Auto) Lymph # (Auto) Pepin # (Auto) Eos # (Auto) Baso # (Auto) Immature Gran # (Auto) PT INR APTT PTT Ratio POC Sodium Sodium 138 POC Potassium Potassium 4.0 POC Chloride Chloride 108 H Carbon Dioxide 23 POC Total CO2 Anion Gap 7.0 POC Anion Gap POC BUN BUN 13 Creatinine 0.79 POC Creatinine Est Cr Clr Drug Dosing 96.4 Est GFR ( Amer) 93.6 Est GFR (Non-Af Amer) 80.8 BUN/Creatinine Ratio 16.9 Glucose 167 H POC Glucose POC Glucose (other) Estimat Average Glucose 171 Hemoglobin A1c 7.6 H Calcium 8.5 POC Ioniz Calcium [place] Magnesium Total Bilirubin AST ALT Alkaline Phosphatase Troponin I 0.103 H* NT-Pro-B Natriuret Pep Total Protein Albumin Globulin Albumin/Globulin Ratio Lipase Beta-Hydroxybutyric Acd Urine Color Urine Appearance Urine pH Ur Specific [place] Urine Protein Urine Glucose (UA) Urine Ketones Urine Blood Urine Nitrite Urine Bilirubin Urine Urobilinogen Ur Leukocyte Esterase Urine WBC (Auto) Urine RBC (Auto) U Hyaline Cast (Auto) U Epithel Cells (Auto) Urine Bacteria (Auto) Beta-2-GPI IgG Ab Beta-2-GPI IgM Ab Anti-Cardiolipin IgG Ab Anti-Cardiolipin IgM Ab COVID-19 Eval Order Hepatitis C Ab Screen SARS-CoV-2, RNA, NAAT 05/30/20 05/30/20 05/30/20 07:07 07:07 07:37 WBC RBC Hgb POC Hgb Hct POC Hct MCV MCH MCHC RDW Std Deviation RDW Coeff of Jb Plt Count MPV Immature Gran % (Auto) Neut % (Auto) Lymph % (Auto) Pepin % (Auto) Eos % (Auto) Baso % (Auto) Neut # (Auto) Lymph # (Auto) Pepin # (Auto) Eos # (Auto) Baso # (Auto) Immature Gran # (Auto) PT 11.9 INR 1.2 H APTT 58.0 H* PTT Ratio 2.2 POC Sodium Sodium POC Potassium Potassium POC Chloride Chloride Carbon Dioxide POC Total CO2 Anion Gap POC Anion Gap POC BUN BUN Creatinine POC Creatinine Est Cr Clr Drug Dosing Est GFR ( Amer) Est GFR (Non-Af Amer) BUN/Creatinine Ratio Glucose POC Glucose 181 H POC Glucose (other) Estimat Average Glucose Hemoglobin A1c Calcium POC Ioniz Calcium [place] Magnesium Total Bilirubin AST ALT Alkaline Phosphatase Troponin I NT-Pro-B Natriuret Pep Total Protein Albumin Globulin Albumin/Globulin Ratio Lipase Beta-Hydroxybutyric Acd Urine Color Urine Appearance Urine pH Ur Specific [place] Urine Protein Urine Glucose (UA) Urine Ketones Urine Blood Urine Nitrite Urine Bilirubin Urine Urobilinogen Ur Leukocyte Esterase Urine WBC (Auto) Urine RBC (Auto) U Hyaline Cast (Auto) U Epithel Cells (Auto) Urine Bacteria (Auto) Beta-2-GPI IgG Ab Beta-2-GPI IgM Ab Anti-Cardiolipin IgG Ab Anti-Cardiolipin IgM Ab COVID-19 Eval Order Hepatitis C Ab Screen Neg SARS-CoV-2, RNA, NAAT 05/30/20 05/30/20 05/30/20 09:43 10:49 11:36 WBC RBC Hgb POC Hgb Hct POC Hct MCV MCH MCHC RDW Std Deviation RDW Coeff of Jb Plt Count MPV Immature Gran % (Auto) Neut % (Auto) Lymph % (Auto) Pepin % (Auto) Eos % (Auto) Baso % (Auto) Neut # (Auto) Lymph # (Auto) Pepin # (Auto) Eos # (Auto) Baso # (Auto) Immature Gran # (Auto) PT INR APTT PTT Ratio POC Sodium Sodium POC Potassium Potassium POC Chloride Chloride Carbon Dioxide POC Total CO2 Anion Gap POC Anion Gap POC BUN BUN Creatinine POC Creatinine Est Cr Clr Drug Dosing Est GFR ( Amer) Est GFR (Non-Af Amer) BUN/Creatinine Ratio Glucose POC Glucose 235 H 180 H 151 H POC Glucose (other) Estimat Average Glucose Hemoglobin A1c Calcium POC Ioniz Calcium [place] Magnesium Total Bilirubin AST ALT Alkaline Phosphatase Troponin I NT-Pro-B Natriuret Pep Total Protein Albumin Globulin Albumin/Globulin Ratio Lipase Beta-Hydroxybutyric Acd Urine Color Urine Appearance Urine pH Ur Specific [place] Urine Protein Urine Glucose (UA) Urine Ketones Urine Blood Urine Nitrite Urine Bilirubin Urine Urobilinogen Ur Leukocyte Esterase Urine WBC (Auto) Urine RBC (Auto) U Hyaline Cast (Auto) U Epithel Cells (Auto) Urine Bacteria (Auto) Beta-2-GPI IgG Ab Beta-2-GPI IgM Ab Anti-Cardiolipin IgG Ab Anti-Cardiolipin IgM Ab COVID-19 Eval Order Hepatitis C Ab Screen SARS-CoV-2, RNA, NAAT Medications Administered Current Inpatient Medications Acetaminophen (Acetaminophen 325 Mg Tab) 650 mg PO Q4H PRN PRN Reason: Pain or Fever Stop: 06/28/20 20:32 Last Admin: 05/30/20 09:42 Dose: 650 mg Documented by: Al Hydrox/Mg Hydrox/Simethicone (Aluminum/Magnesium Susp 30 Ml Udc) 15 ml PO Q4H PRN PRN Reason: Dyspepsia Stop: 06/28/20 20:32 Clobetasol Propionate (Clobetasol Propionate 0.05% Oint 15 Gm Tube) 1 appln EXT DAILY PRN PRN Reason: psorasis Stop: 06/28/20 21:34 Dextrose (Dextrose 50% 50 Ml Syringe) 25 - 50 ml IV UD PRN; Protocol PRN Reason: Hypoglycemia Protocol Stop: 06/28/20 21:44 Glucagon (Glucagon For Inj 1 Mg Vial) 1 mg IM UD PRN; Protocol PRN Reason: Hypoglycemia Protocol Stop: 06/28/20 21:44 Glucose (Glucose 40% Gel 15 Gm Tube) 15 - 30 gm PO UD PRN; Protocol PRN Reason: Hypoglycemia Protocol Stop: 06/28/20 21:44 Glucose (Glucose 10 Tabs/Tube) 4 - 8 tabs PO UD PRN; Protocol PRN Reason: Hypoglycemia Protocol Stop: 06/28/20 21:44 Heparin Sodium/Dextrose (Heparin Sodium/Dextrose) 25,000 units in 500 mls @ 26 mls/hr IV .[id number] ABIGAIL; Protocol Stop: 06/28/20 18:14 Last Titration: 05/30/20 07:07 Dose: 1,300 units/hr, 26 mls/hr Documented by: Insulin Human Regular 250 (units/ Sodium Chloride) 250 mls @ 1.1 mls/hr IV .Q24H ABIGAIL; Protocol Stop: 06/28/20 21:44 Last Titration: 05/30/20 11:51 Dose: 1.1 units/hr, 1.1 mls/hr Documented by: Ciprofloxacin (Cipro / D5w) 400 mg in 200 mls @ 100 mls/hr IV Q12H ABIGAIL; Pr otocol Stop: 06/08/20 21:59 Last Infusion: 05/30/20 11:42 Dose: Infused Documented by: Insulin Aspart (Insulin Aspart 100 Units/Ml 3 Ml Pen) 0 units SC ACHS [facility] Stop: 06/29/20 07:29 Last Admin: 05/30/20 08:09 Dose: 5 units Documented by: Insulin Aspart (Insulin Aspart 100 Units/Ml 3 Ml Pen) 0 units SC ACHS [facility] Stop: 06/29/20 11:29 Last Admin: 05/30/20 11:53 Dose: 4 units Documented by: Insulin Detemir (Insulin Detemir Flexpen/Flex Touch 100 Units/Ml 3ml) 0 units SC Q12 [facility]; Protocol Stop: 06/29/20 20:59 Magnesium Oxide (Magnesium Oxide 400 Mg Tab) 400 mg PO DAILY [facility] Stop: 06/29/20 08:59 Last Admin: 05/30/20 08:12 Dose: 400 mg Documented by: Miscellaneous (Carbohydrates For Hypoglycemia ) 15 - 30 gm PO PRN PRN PRN Reason: Hypoglycemia Treatment Stop: 06/28/20 21:44 Miscellaneous Information (Pharmacy Glycemic Mgmt Consult) 1 ea N/A UD PRN PRN Reason: Consult Stop: 06/28/20 20:57 Miscellaneous Information (Dc Iv Insulin Infusion 1 Ea Shira) 1 ea N/A TODA Y@0900 [facility] Stop: 05/30/20 15:00 Ondansetron HCl (Ondansetron Inj 2 Mg/Ml 2 Ml Vial) 4 mg IV Q6H PRN PRN Reason: Nausea Stop: 06/28/20 20:32 Polyethylene Glycol (Polyethylene (Miralax) 17 Gm Pack) 17 gm PO DAILY PRN PRN Reason: Constipation Stop: 06/28/20 20:32 Pregabalin (Pregabalin 100 Mg Cap) 100 mg PO BID [facility] Stop: 06/28/20 20:59 Last Admin: 05/30/20 08:16 Dose: 100 mg Documented by: Psyllium Hydrophilic Mucilloid (Psyllium 58.6% Powder Packet) 1 pkt PO QAM [facility] Stop: 06/29/20 08:59 Last Admin: 05/30/20 08:13 Dose: 1 pkt Documented by: Tramadol HCl (Tramadol Hcl 50 Mg Tablet) 50 mg PO Q4H PRN PRN Reason: Pain Stop: 06/29/20 12:26 Venlafaxine HCl (Venlafaxine Hcl Xr 150 Mg Capxr) 150 mg PO BID [facility] Stop: 06/28/20 20:59 Last Admin: 05/30/20 08:12 Dose: 150 mg Documented by: Warfarin Sodium (Warfarin Sod 10 Mg Tab) 10 mg PO DAILY@1600 [facility] Stop: 05/31/20 15:59 PG Care Time/CCT Total # of Minutes Spent Total Time Spent: 32 Total Time Spent with Patient: Total time spent is greater than 50% in coordination of care (as documented) at patient's floor/unit and/or counseling patient: Coding Level of Care Code 18215 Subseq Hosp Care Lvl 3 Diagnoses Bilateral pulmonary embolism I26.99 Hypoxia R09.02 Diabetic ketoacidosis E11.10 Diabetes mellitus complication detail: without coma Diabetes mellitus type: type 2 Diabetes mellitus, type 2 E11.65; Z79.4 Diabetes mellitus complication status: with hyperglycemia Diabetes mellitus [employer] insulin use: with chcf use Urinary tract infection N39.0 Hypertension I10 Hypertension type: essential hypertension Hyperlipidemia E78.5 Hyperlipidemia type: unspecified Severe obstructive sleep apnea G47.33 Fibromyalgia M79.7 (1) Diabetic ketoacidosis Diabetes mellitus complication detail: without coma Diabetes mellitus type: type 2 Qualified Code(s): E11.10 - Type 2 diabetes mellitus with ketoacidosis without coma (2) Diabetes mellitus, type 2 Diabetes mellitus complication status: with hyperglycemia 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
[2020-05-30] MEDS: HEPARIN SODIUM/DEXTROSE 25,000 UNITS/500 ML BAG IV SCH (12:35)
[2020-05-30] MEDS: traMADol HCL 50 MG TABLET PO PRN (12:55)
--- NOTE | 2020-05-30 14:44 | Pharmacy Report ---
Pharmacy Glycemic Short Note 2 - Date of Service May 30, 2020 - Glycemic Short BSG Results (Last 24 hours): 05/29/20 05/29/20 05/29/20 17:20 17:29 22:48 Glucose 381 H* POC Glucose 291 H POC Glucose (other) 390 H* 05/29/20 05/30/20 05/30/20 23:52 00:52 01:51 Glucose POC Glucose 234 H 223 H 159 H POC Glucose (other) 05/30/20 05/30/20 05/30/20 03:00 04:50 07:07 Glucose 167 H POC Glucose 153 H 108 H POC Glucose (other) 05/30/20 05/30/20 05/30/20 07:37 09:43 10:49 Glucose POC Glucose 181 H 235 H 180 H POC Glucose (other) 05/30/20 05/30/20 11:36 13:00 Glucose POC Glucose 151 H 159 H POC Glucose (other) OUTPATIENT ANTIDIABETIC REGIMEN: * Levemir 15 SQ BID * Humalog TIDM 2 units for every 10g of CHO * glimepiride 2mg qam * A1C: 7.6% 05/30/20 ASSESSMENT: * Patient admitted for PE on a heparin drip (contains dextrose) * Patient remains on a low rate of insulin infusion (~1 units/hr) after 20 units of SQ levemir this morning. I anticipate successfully transitioning off infusion this afternoon * Will start with a BID levemir scale this evening. PLAN FOR INPATIENT GLYCEMIC CONTROL: * Hold outpatient oral diabetes medications * Basal insulin * Levemir 20 units SQ this morning * Levemir scale for this evening (10,15, or 20 units- see MAR for details) * Bolus insulin * NovoLog per scale ACHS or Q6hrs while NPO * Goal Range: Low 110 mg/dL - High 140 mg/dL * Correction Factor: 20 mg/dL/unit * Nutritional / Prandial insulin per carb ratio of 1 unit per 6 grams CHO consumed PLAN FOR DISCHARGE: * TBD
--- NOTE | 2020-05-30 15:08 | XCELERA ---
[id number] [id number]
[2020-05-30] MEDS ORDERED: WARFARIN SOD 10 MG TAB PO SCH (16:00)
[2020-05-30] MEDS ORDERED: LORazepam 0.5 MG TAB PO PRN (16:26)
[2020-05-30] MEDS: INSULIN DETEMIR FLEXPEN/FLEX TOUCH 100 UNITS/ML 3ML SC SCH (21:20)
--- NOTE | 2020-05-31 05:24 | Electrocardiogram Report ---
Test Reason : Blood Pressure : / mmHG Vent. Rate : 120 BPM Atrial Rate : 120 BPM P-R Int : 126 ms QRS Dur : 084 ms QT Int : 344 ms P-R-T Axes : 058 110 -38 degrees QTc Int : 486 ms Sinus tachycardia Possible Left atrial enlargement Right axis deviation Septal infarct , age undetermined T wave abnormality, consider inferior ischemia Prolonged QT Abnormal ECG When compared with ECG of 17-JUL-2017 08:16, Vent. rate has increased BY 54 BPM Septal infarct is now Present Inverted T waves have replaced nonspecific T wave abnormality in Inferior leads Confirmed by Fritz Anderson ([id number]) on 05/31/2020 5:24:27 AM Referred By: Yobani Hernadnez Confirmed By:Fritz Anderson
--- NOTE | 2020-05-31 06:00 | Electrocardiogram Report ---
Test Reason : Blood Pressure : / mmHG Vent. Rate : 108 BPM Atrial Rate : 108 BPM P-R Int : 140 ms QRS Dur : 078 ms QT Int : 380 ms P-R-T Axes : 061 103 -60 degrees QTc Int : 509 ms Sinus tachycardia Rightward axis T wave abnormality, consider inferior ischemia T wave abnormality, consider anterior ischemia Prolonged QT Abnormal ECG When compared with ECG of 29-MAY-2020 17:08, No significant change was found Confirmed by Fritz Anderson ([id number] on 05/31/2020 5:59:32 AM Referred By: Yobani Hernandez Confirmed By:Fritz Anderson
[2020-05-31] MEDS ORDERED: ENOXAPARIN 1 MG/KG SC SCH (08:00)
[2020-05-31 08:04] LABS: Partial Thromboplastin Ratio 2.2
[2020-05-31 08:06] LABS: Partial Thromboplastin Time 57.8 Seconds (21.0-31.0)
[2020-05-31] MEDS: INSULIN ASPART 100 UNITS/ML 3 ML PEN SC SCH ×4 (08:28→21:05)
[2020-05-31] MEDS: INSULIN DETEMIR FLEXPEN/FLEX TOUCH 100 UNITS/ML 3ML SC SCH ×2 (08:31→21:05)
[2020-05-31] MEDS: MAGNESIUM OXIDE 400 MG TAB PO SCH (08:32)
[2020-05-31] MEDS: VENLAFAXINE HCL XR 150 MG CAPXR PO SCH ×2 (08:32→21:04)
[2020-05-31] MEDS: PSYLLIUM 58.6% POWDER PACKET PO SCH (08:34)
[2020-05-31] MEDS: PREGABALIN 100 MG CAP PO SCH ×2 (08:36→21:01)
[2020-05-31] MEDS: ENOXAPARIN INJ 120 MG/0.8 ML SYR SQ SCH ×2 (09:43→20:11)
--- NOTE | 2020-05-31 12:12 | Hospitalist Progress Note ---
Date of Service May 31, 2020 Assessment & Plan (1) Bilateral pulmonary embolism: IV heparin standard bolus and drip. started on Coumadin 10mg daily, check INR daily, it is 1.1 today check in AM, likely decrease to 5mg daily given severity of disease will need overlap of 48 hours with Lovenox, she feels comfortable with Lovenox at home change to lovenox 1mg/kg q12 this morning saturating well on room air at rest, gets short of breath on exertion, sinus tachycardia on exertion will get two step to determine home oxygen needs echocardiogram with normal EF at 65%, RV normal size, mild reduction in systolic function, no major signs of right heart strain pain associated with pulmonary infarcts, no signs of infection at this time use Ultram PRN for pain, working well CM arranged for follow up with the coagulation clinic on Wednesday plan for discharge tomorrow (2) Hypoxia: initially on 4L, quickly down to 2L and today she is stable on room air gets short of breath on exertion but not at rest check two step for home oxygen on exertion if needed (3) Diabetic ketoacidosis: Ketones in urine, bicarb 20, anion gap 12 at time of admission likely caused by stress of pulmonary embolism and infarcts quickly resolved with insulin drip, converted to basal bolus dosing this morning diabetic diet, monitor sugars closely, they are stable (4) Diabetes mellitus, type 2: HbA1c is in 7 range, well controlled normally Hold glimepiride while inpatient Management with insulin drip initially, now basal bolus monitor for hypoglycemia, no episodes (5) Urinary tract infection: No definitive symptoms of this except for non-specific b/l CVA tenderness which would be unusual for PEs given location of pulmonary infarction. UA grossly positive for bacteria although may also be contaminant. initially on Cipro urine culture with Klebsiella, > 100k will use Macrobid 100mg BID, has a PCN allergy, avoid Cipro with concurrent Coumadin and lengthened QTc (6) Hypertension: BP is elevated, resume amlodipine and lisinopril (7) Hyperlipidemia: Noted history of this not on statins (8) Severe obstructive sleep apnea: May use own CPAP HS concerned about insomnia, had difficult time sleeping give Ativan 0.5mg HS and if she cannot sleep after 30 minutes then give additional 0.5mg (9) Fibromyalgia: Continue venlafaxine 150 mg p.o. twice daily and pregabalin 100 mg p.o. twice daily Admission and Anticipated Discharge Date Admission Date: May 29, 2020 Subjective patient feeling better today, wants to go home, discussed that she has just come off oxygen with her bilateral PE it is still a little early for discharge will check a 2 step to set up oxygen as needed she is okay with giving herself Lovenox shots at home, checked copay, only $15 INR is only 1.1, give Coumadin 10mg urine culture with Klebsiella, limited what we can use with PCN allergy and Coumadin d/w pharmacy, will give Macrobid BID x 5 days CBC and BMP stable she had some questions about scant hemoptysis, told her it can be normal she asked about restrictions at home and what to expect with recovery she is eating well, she slept really well last night with an Ultram and ear buds her BP is elevated, will resume her home BP medications with Norvasc and lisinopril plan for discharge tomorrow, she is quite pleased about this Review of Systems Review of Systems: All systems reviewed & are unremarkable except as noted in Subjective Respiratory: + cough, + dyspnea on exertion, + hemoptysis (blood tinged sputum, no nate hemoptysis), + pain on inspiration and + pain with cough; no dyspnea Cardiovascular: + chest pain Physical Exam Constitutional: well developed, comfortable and + overweight; no acute distress Neck: trachea midline, no thyromegaly Respiratory: normal respiratory effort, lungs clear to auscultation Cardiovascular: RRR, no murmur, no edema Gastrointestinal (Abdomen): normal bowel sounds, soft, nontender, no hepatosplenomegaly Musculoskeletal: no cyanosis or clubbing, extremities motor strength 5/5 Skin: no rashes, warm and dry Neurologic: patellar DTR's 2+ bilat, sensation intact and PERRL, EOMI, accommodation nl, no face palsy, no dysarthria Psychiatric: A+Ox3, euthymic affect Lymphatic: no cervical or axillary lymphadenopathy Results & Data Results & Data ([facility]) Vital Signs (Past 12 Hours) Vital Signs Temp Pulse Pulse Resp BP BP Pulse Ox 05/31/20 12:01 36.5 C 104 H 19 150/98 H 99 05/31/20 08:00 36.7 C 100 H 158/64 H 96 05/31/20 07:55 94 H 03/19/21 03:11 37.0 C 96 H 19 139/94 96 Laboratory Results Microbiology 05/29/20 18:37 Urine,Clean Catch Urine Culture - Final Klebsiella pneumoniae 05/29/20 22:26 Blood Aerobic Blood Culture - Preliminary No growth in Aerobic bottle after 24 hours. 05/29/20 22:26 Blood Anaerobic Blood Culture - Preliminary No growth in Anaerobic bottle after 24 hours. 05/29/20 22:35 Blood Aerobic Blood Culture - Preliminary No growth in Aerobic bottle after 24 hours. 05/29/20 22:35 Blood Anaerobic Blood Culture - Preliminary No growth in Anaerobic bottle after 24 hours. Laboratory Results - last 24 hr 05/31/20 05/31/20 05/31/20 07:08 07:46 11:30 WBC RBC Hgb Hct MCV MCH MCHC RDW Std Deviation RDW Coeff of Jb Plt Count MPV PT INR APTT 57.8 H* PTT Ratio 2.2 Sodium Potassium Chloride Carbon Dioxide Anion Gap BUN Creatinine Est Cr Clr Drug Dosing Est GFR ( Amer) Est GFR (Non-Af Amer) BUN/Creatinine Ratio Glucose POC Glucose 155 H 128 H Calcium Phosphorus Magnesium 05/31/20 05/31/20 05/31/20 11:57 11:57 11:57 WBC 11.13 H RBC 4.21 Hgb 12.6 Hct 36.8 L MCV 87.4 MCH 29.9 MCHC 34.2 RDW Std Deviation 48.1 H RDW Coeff of Jb 15.1 H Plt Count 243 MPV 10.1 PT 11.0 INR 1.1 APTT PTT Ratio Sodium 137 Potassium 4.1 Chloride 107 Carbon Dioxide 22 Anion Gap 8.0 BUN 14 Creatinine 0.80 Est Cr Clr Drug Dosing 95.2 Est GFR ( Amer) 92.2 Est GFR (Non-Af Amer) 79.6 BUN/Creatinine Ratio 17.5 Glucose 127 H POC Glucose Calcium 9.3 Phosphorus 3.6 Magnesium 2.2 05/31/20 05/31/20 16:26 20:49 WBC RBC Hgb Hct MCV MCH MCHC RDW Std Deviation RDW Coeff of Jb Plt Count MPV PT INR APTT PTT Ratio Sodium Potassium Chloride Carbon Dioxide Anion Gap BUN Creatinine Est Cr Clr Drug Dosing Est GFR ( Amer) Est GFR (Non-Af Amer) BUN/Creatinine Ratio Glucose POC Glucose 94 188 H Calcium Phosphorus Magnesium Medications Administered Current Inpatient Medications Acetaminophen (Acetaminophen 325 Mg Tab) 650 mg PO Q4H PRN PRN Reason: Pain or Fever Stop: 06/28/20 20:32 Last Admin: 05/30/20 09:42 Dose: 650 mg Documented by: Al Hydrox/Mg Hydrox/Simethicone (Aluminum/Magnesium Susp 30 Ml Udc) 15 ml PO Q4H PRN PRN Reason: Dyspepsia Stop: 06/28/20 20:32 Amlodipine Besylate (Amlodipine Besylate 5 Mg Tab) 10 mg PO QAM ABIGAIL Stop: 06/30/20 12:14 Last Admin: 05/31/20 13:14 Dose: 10 mg Documented by: Clobetasol Propionate (Clobetasol Propionate 0.05% Oint 15 Gm Tube) 1 appln EXT DAILY PRN PRN Reason: psorasis Stop: 06/28/20 21:34 Dextrose (Dextrose 50% 50 Ml Syringe) 25 - 50 ml IV UD PRN; Protocol PRN Reason: Hypoglycemia Protocol Stop: 06/28/20 21:44 Enoxaparin Sodium (Enoxaparin Inj 120 Mg/0.8 Ml Syr) 111 mg SQ Q12H ABIGAIL Stop: 06/30/20 08:14 Last Admin: 05/31/20 20:11 Dose: 111 mg Documented by: Glucagon (Glucagon For Inj 1 Mg Vial) 1 mg IM UD PRN; Protocol PRN Reason: Hypoglycemia Protocol Stop: 06/28/20 21:44 Glucose (Glucose 40% Gel 15 Gm Tube) 15 - 30 gm PO UD PRN; Protocol PRN Reason: Hypoglycemia Protocol Stop: 06/28/20 21:44 Glucose (Glucose 10 Tabs/Tube) 4 - 8 tabs PO UD PRN; Protocol PRN Reason: Hypoglycemia Protocol Stop: 06/28/20 21:44 Insulin Aspart (Insulin Aspart 100 Units/Ml 3 Ml Pen) 0 units SC ACHS ABIGAIL Stop: 06/29/20 11:29 Last Admin: 05/31/20 21:05 Dose: 3 units Documented by: Insulin Detemir (Insulin Detemir Flexpen/Flex Touch 100 Units/Ml 3ml) 0 units SC Q12 ABIGAIL; Protocol Stop: 06/29/20 20:59 Last Admin: 05/31/20 21:05 Dose: 20 units Documented by: Lisinopril (Lisinopril 10 Mg Tab) 10 mg PO QAM [facility] Stop: 06/30/20 12:14 Last Admin: 05/31/20 13:14 Dose: 10 mg Documented by: Lorazepam (Lorazepam 0.5 Mg Tab) 0.5 mg PO HS PRN PRN Reason: Insomnia Stop: 06/29/20 16:25 Magnesium Oxide (Magnesium Oxide 400 Mg Tab) 400 mg PO DAILY [facility] Stop: 06/29/20 08:59 Last Admin: 05/31/20 08:32 Dose: 400 mg Documented by: Miscellaneous (Carbohydrates For Hypoglycemia ) 15 - 30 gm PO PRN PRN PRN Reason: Hypoglycemia Treatment Stop: 06/28/20 21:44 Miscellaneous Information (Pharmacy Glycemic Mgmt Consult) 1 ea N/A UD PRN PRN Reason: Consult Stop: 06/28/20 20:57 Nitrofurantoin Macrocrystals (Nitrofurantoin Monohydrate 100 Mg Cap) 100 mg PO BID [facility] Stop: 06/04/20 21:01 Last Admin: 05/31/20 21:02 Dose: 100 mg Documented by: Ondansetron HCl (Ondansetron Inj 2 Mg/Ml 2 Ml Vial) 4 mg IV Q6H PRN PRN Reason: Nausea Stop: 06/28/20 20:32 Polyethylene Glycol (Polyethylene (Miralax) 17 Gm Pack) 17 gm PO DAILY PRN PRN Reason: Constipation Stop: 06/28/20 20:32 Pregabalin (Pregabalin 100 Mg Cap) 100 mg PO BID [facility] Stop: 06/28/20 20:59 Last Admin: 05/31/20 21:01 Dose: 100 mg Documented by: Psyllium Hydrophilic Mucilloid (Psyllium 58.6% Powder Packet) 1 pkt PO QAM [facility] Stop: 06/29/20 08:59 Last Admin: 05/31/20 08:34 Dose: Not Given Documented by: Tramadol HCl (Tramadol Hcl 50 Mg Tablet) 50 mg PO Q4H PRN PRN Reason: Pain Stop: 06/29/20 12:26 Last Admin: 05/31/20 21:02 Dose: 50 mg Documented by: Venlafaxine HCl (Venlafaxine Hcl Xr 150 Mg Capxr) 150 mg PO BID [facility] Stop: 06/28/20 20:59 Last Admin: 05/31/20 21:04 Dose: 150 mg Documented by: PG Care Time/CCT Total # of Minutes Spent Total Time Spent with Patient: Total time spent is greater than 50% in coordination of care (as documented) at patient's floor/unit and/or counseling patient: Coding Level of Care Code 88277 Subseq Hosp Care Lvl 3 Diagnoses Bilateral pulmonary embolism I26.99 Hypoxia R09.02 Diabetic ketoacidosis E11.10 Diabetes mellitus complication detail: without coma Diabetes mellitus type: type 2 Diabetes mellitus, type 2 E11.65; Z79.4 Diabetes mellitus complication status: with hyperglycemia Diabetes mellitus tank terminal gauger insulin use: with usp use Urinary tract infection N39.0 Hypertension I10 Hypertension type: essential hypertension Hyperlipidemia E78.5 Hyperlipidemia type: unspecified Severe obstructive sleep apnea G47.33 Fibromyalgia M79.7 (1) Diabetic ketoacidosis Diabetes mellitus complication detail: without coma Diabetes mellitus type: type 2 Qualified Code(s): E11.10 - Type 2 diabetes mellitus with ketoacidosis without coma (2) Diabetes mellitus, type 2 Diabetes mellitus complication status: with hyperglycemia Diabetes mellitus usp insulin use: with usp use Qualified Code(s): E11.65 - Type 2 diabetes mellitus with hyperglycemia; Z79.4 - tank terminal gauger (current) use of insulin (3) Hyperlipidemia Hyperlipidemia type: unspecified Qualified Code(s): E78.5 - Hyperlipidemia, unspecified (4) Hypertension Hypertension type: essential hypertension Qualified Code(s): I10 - Essential (primary) hypertension
[2020-05-31 12:14] LABS: Hematocrit (blood only) 36.8 % (37-47); Hemoglobin 12.6 g/dL (12.0-16.0); Mean Corpuscular Hemoglobin 29.9 pg (25-34); Mean Corpuscular Hgb Conc 34.2 g/dL (32-36); Mean Corpuscular Volume 87.4 fL (80-100); Mean Platelet Volume 10.1 fL (7.4-10.4); Platelet Count 243 K/uL (130-400); RDW Coefficient of Variation 15.1 % (11.5-14.5); RDW Standard Deviation 48.1 fL (36.4-46.3); Red Blood Count 4.21 M/uL (4.2-5.4); White Blood Count 11.13 K/uL (4.8-10.8)
[2020-05-31] MEDS ORDERED: SULFAMETHOXAZOLE/TRIMETHOPRIM DS 800/160MG TAB PO ONE (12:14)
[2020-05-31 12:24] LABS: INR 1.1 (0.9-1.1)
--- NOTE | 2020-05-31 12:41 | Pharmacy Report ---
Pharmacy Glycemic Short Note 2 - Date of Service May 31, 2020 - Glycemic Short BSG Results (Last 24 hours): 05/30/20 05/30/20 05/30/20 13:00 15:05 16:23 POC Glucose 159 H 108 H 131 H 05/30/20 05/31/20 05/31/20 20:45 07:46 11:30 POC Glucose 143 H 155 H 128 H OUTPATIENT ANTIDIABETIC REGIMEN: * Levemir 15 SQ BID * Humalog TIDM 2 units for every 10g of CHO * glimepiride 2mg qam * A1C: 7.6% 05/30/20 ASSESSMENT: 05/31 * Patient transitioned off of insulin infusion yesterday and BSGs have been within goal range. Heparin infusion was transitioned to lovenox. * Fasting this morning 155 mg/dL- will continue current levemir scale * Prandial BSGs have been within goal range- continue current parameters 05/30 * Patient admitted for PE on a heparin drip (contains dextrose) * Patient remains on a low rate of insulin infusion (~1 units/hr) after 20 units of SQ levemir this morning. I anticipate successfully transitioning off infusion this afternoon * Will start with a BID levemir scale this evening. PLAN FOR INPATIENT GLYCEMIC CONTROL: * Hold outpatient oral diabetes medications * Basal insulin * Levemir 20 units SQ this morning * Levemir scale for this evening (10,15, or 20 units- see MAR for details) * Bolus insulin * NovoLog per scale ACHS or Q6hrs while NPO * Goal Range: Low 110 mg/dL - High 140 mg/dL * Correction Factor: 20 mg/dL/unit * Nutritional / Prandial insulin per carb ratio of 1 unit per 6 grams CHO consumed PLAN FOR DISCHARGE: * TBD
[2020-05-31 12:42] LABS: BUN Creatinine Ratio 17.5 (10-20); Calcium 9.3 mg/dl (8.5-10.1); Creatinine Clr Calc Pharmacy 95.2 ml/min; Est GFR (African American) 92.2; Est GFR (Non-African American) 79.6; Magnesium 2.2 mg/dl (1.8-2.4); Phosphorus 3.6 mg/dl (2.5-4.9); Potassium 4.1 mmol/L (3.5-5.1)
[2020-05-31] MEDS: lisinopril 10 MG TAB PO SCH (13:14)
[2020-05-31] MEDS: amLODIPine BESYLATE 5 MG TAB PO SCH (13:14)
[2020-05-31] MEDS: NITROFURANTOIN MONOHYDRATE 100 MG CAP PO SCH ×2 (14:42→21:02)
[2020-05-31] MEDS: traMADol HCL 50 MG TABLET PO PRN ×2 (15:05→21:02)
[2020-05-31] MEDS ORDERED: WARFARIN SOD 10 MG TAB PO ONE (19:40)
[2020-05-31] MEDS ORDERED: SULFAMETHOXAZOLE/TRIMETHOPRIM DS 800/160MG TAB PO SCH (21:00)
[2020-06-01 08:00] LABS: Hemoglobin 12.5 g/dL (12.0-16.0); Mean Corpuscular Hemoglobin 29.3 pg (25-34); Mean Corpuscular Hgb Conc 32.9 g/dL (32-36); Mean Corpuscular Volume 89.2 fL (80-100); Mean Platelet Volume 10.2 fL (7.4-10.4); Platelet Count 261 K/uL (130-400); Red Blood Count 4.26 M/uL (4.2-5.4); White Blood Count 9.14 K/uL (4.8-10.8)
[2020-06-01 08:09] LABS: INR 1.1 (0.9-1.1); Prothrombin Time 11.4 Seconds (9.0-12.0)
[2020-06-01 08:17] LABS: BUN Creatinine Ratio 17.2 (10-20); Calcium 9.3 mg/dl (8.5-10.1); Creatinine Clr Calc Pharmacy 86.7 ml/min; Est GFR (African American) 82.2; Est GFR (Non-African American) 70.9
[2020-06-01] MEDS: INSULIN ASPART 100 UNITS/ML 3 ML PEN SC SCH (08:59)
[2020-06-01] MEDS: INSULIN DETEMIR FLEXPEN/FLEX TOUCH 100 UNITS/ML 3ML SC SCH (09:00)
[2020-06-01] MEDS: PSYLLIUM 58.6% POWDER PACKET PO SCH (09:00)
[2020-06-01] MEDS: lisinopril 10 MG TAB PO SCH (09:02)
[2020-06-01] MEDS: PREGABALIN 100 MG CAP PO SCH (09:02)
[2020-06-01] MEDS: VENLAFAXINE HCL XR 150 MG CAPXR PO SCH (09:03)
[2020-06-01] MEDS: amLODIPine BESYLATE 5 MG TAB PO SCH (09:03)
[2020-06-01] MEDS: ENOXAPARIN INJ 120 MG/0.8 ML SYR SQ SCH (09:03)
[2020-06-01] MEDS: NITROFURANTOIN MONOHYDRATE 100 MG CAP PO SCH (09:03)
[2020-06-01] MEDS: MAGNESIUM OXIDE 400 MG TAB PO SCH (09:03)
--- NOTE | 2020-06-01 11:25 | Discharge Summary ---
Date of Service June 01, 2020 Admission HPI Per Admitting Provider Carly Lopes is a 59-year-old female who presents to the ER with increasing shortness of breath and chest pain. This may have been progressing for some time as she has intercostal neuralgia and has been putting her pleuritic chest pain down to this. She did manage to go for a mile walk 3 days ago and was more winded than she usually is but appeared to be better yesterday and felt this may have just been due to deconditioning. She also noticed decreased exercise tolerance 3 weeks ago on a 3 mile hike. Today she reports being significantly short of breath especially on exertion. No improvement with her albuterol inhaler. In the ER she was diagnosed with bilateral pulmonary emboli with pulmonary infarction. She denies any recent surgeries, leg swelling or long-haul travel. She regularly exercises on an exercise bike. She has had 1 prior episode of pulmonary emboli related to oral contraceptive pills and smoking at that time. No COVID-19 pneumonia or symptoms suggestive of this. She does note a significant history of 7 miscarriages with one full-term . No known medical reason for her miscarriages although she does have a diagnosis of mixed connective tissue disorder. She was started on a heparin IV drip in the emergency room. She was also noted to be hyperglycemic with an elevated anion gap. She does report missing her usual morning dose of Levemir today. She reports glucose usually runs around 140. UA grossly appeared infected. She denies any dysuria, change in urinary frequency/smell/color. She does note bilateral flank pain which has been new in the last few days. She denies any fevers or chills. She was referred to medicine for admission ongoing management of bilateral PEs. Principal Diagnosis Bilateral pulmonary emboli with pulmonary infarcts Discharge Exam Constitutional well developed, comfortable and + overweight; no acute distress Neck trachea midline, no thyromegaly Respiratory normal respiratory effort, lungs clear to auscultation Cardiovascular RRR, no murmur, no edema Gastrointestinal (Abdomen) normal bowel sounds, soft, nontender, no hepatosplenomegaly Musculoskeletal no cyanosis or clubbing, extremities motor strength 5/5 Skin no rashes, warm and dry Neurologic patellar DTR's 2+ bilat, sensation intact and PERRL, EOMI, accommodation nl, no face palsy, no dysarthria Psychiatric A+Ox3, euthymic affect Lymphatic no cervical or axillary lymphadenopathy Discharge Data Allergies Allergy/AdvReac Type Severity Reaction Status Date / Time aspirin Allergy Severe STOMACH Verified 05/22/20 09:15 UPSET AND ANAPHYLAXIS Penicillins Allergy Severe ANAPHYLAXIS Verified 05/22/20 09:15 AND RASH rofecoxib Allergy Severe ANAPHYLAXIS Verified 05/22/20 09:15 pollen extracts Allergy Unknown SINUS Verified 05/22/20 09:15 CONGESTION, ITCHY THROAT, WATERY EYES tomato AdvReac Mild nausea/vomi Verified 05/22/20 09:15 ting Consultations 05/29/20 18:21 ED Decision to Admit Stat Ordered Studies 05/29/20 17:12 CT angio chest PE protocol Stat Hospital Course (1) Bilateral pulmonary embolism: initially treated with IV heparin standard bolus and drip. started on Coumadin 10mg daily on 05/30 and 05/31 INR is still only 1.1, will give 10mg today at home (06/01) reduced to 5mg daily on 06/02 and 06/03 and will follow up with coagulation clinic on 06/04 changed to lovenox 1mg/kg q12 morning of 05/31, tolerating well, says she can administer at home, no problems with this unsure how long it will take INR to come up since it is still 1.1 after 20mg total of Coumadin will give 10 day supply of Lovenox saturating well on room air at rest, gets short of breath on exertion, sinus tachycardia on exertion but quickly corrects two step done 05/31, no home oxygen requirements echocardiogram with normal EF at 65%, RV normal size, mild reduction in systolic function, no major signs of right heart strain pain associated with pulmonary infarcts use Ultram PRN for pain, working well,. new script provided CM arranged for follow up with the coagulation clinic on Wednesday afternoon plan for discharge to home, ordered to gradually increase activity as tolerated, take off work until 06/06 () (2) Hypoxia: initially on 4L, quickly down to 2L and stable on room air since morning of 05/31 check two step for home oxygen on exertion - NO OXYGEN needed (3) Diabetic ketoacidosis: Ketones in urine, bicarb 20, anion gap 12 at time of admission likely caused by stress of pulmonary embolism and infarcts quickly resolved with insulin drip, converted to basal bolus dosing this morning diabetic diet, monitor sugars closely, some hypoglycemia this morning but quickly corrected with orange juice resume home regimen on discharge (4) Diabetes mellitus, type 2: HbA1c is in 7 range, well controlled normally Hold glimepiride while inpatient Management with insulin drip initially, now basal bolus again, resume home regimen (5) Urinary tract infection: No definitive symptoms of this except for non-specific b/l CVA tenderness which would be unusual for PEs given location of pulmonary infarction. UA grossly positive for bacteria initially on Cipro urine culture with Klebsiella, > 100k will use Macrobid 100mg BID x 5 days total, has a PCN allergy, avoid Cipro with concurrent Coumadin and lengthened QTc (6) Hypertension: BP is elevated, resume amlodipine and lisinopril (7) Hyperlipidemia: Noted history of this not on statins (8) Severe obstructive sleep apnea: May use own CPAP HS (9) Fibromyalgia: Continue venlafaxine 150 mg p.o. twice daily and pregabalin 100 mg p.o. twice daily Total Time Total Time Spent Total Time Spent (In Minutes): 35 Total Time Includes: Examination of the Patient, Discharge Planning and Medication Reconciliation Discharge Plan Discharge Items Patient Disposition: Home - Self-Care Reason For Visit: PULMONARY EMBOLISM Discharge Diagnosis: Bilateral pulmonary emboli Pulmonary infarction DM type II with diabetic ketoacidosis, resolved Condition on Discharge: Good Goals: follow up closely with coagulation clinic Activity: Resume your previous activity Non-emergency contact: Primary Care Provider Call non-emergency contact if: you have any medication questions and your symptoms worsen Follow-up/Referrals: Yobani Hernandez MD [Primary Care Provider] - (next week) Diet: Carb Consistent or DM2 Addtl Attending Provider Instructions: Medications: - LOVENOX: continue taking twice a day until instructed to stop by the coagulation clinic, this provides full anticoagulation I will provide you with 10 day supply to make sure you have enough to cover you until INR is > 2 - COUMADIN: will provide you with 5mg tablets, take 10mg today and then start with 5mg daily tomorrow and Wednesday until you check INR with coagulation clinic on Wednesday they will provide further instructions on dosing - MACROBID: take for 4 more days for Klebsiealla UTI, antibiotic options limited with penicillin allergy and concurrent use of Coumadin as a lot of antibiotics interact with Coumadin Bilateral pulmonary emboli with pulmonary infarcts, acute hypoxia hypoxia resolved, performed two step test with respiratory therapy on 05/31 that showed no oxygen needs on exertion will likely still experience some chest/shoulder/back pain for a few weeks, gradually improve, use Ultram as needed normal to have some blood tinged sputum with pulmonary emboli, please watch for nate hemoptysis, coughing up a cup of pure blood, but this is highly unlikely will treat with Lovenox 1mg/kg twice a day until Coumadin is therapeutic so far you have had Coumadin 10mg on 05/31 and 06/01 and INR is only 1.1, r ecommend you take 10mg again this afternoon and then 5mg daily follow up with INR at coagulation clinic on Wednesday and they will give further instructions please take off from work until , want you to rest and focus on getting better Pending Studies at Discharge: Yes Studies:: antiphospholipid antibody testing Stand-Alone Forms: My [facility], Work/School Release (Inpt), Smoking Cessation Medications and DC Order Prescriptions: New nitrofurantoin monohyd/m-cryst 100 mg Capsule 100 mg PO BID 4 Days Qty: 8 RF: 0 enoxaparin [Lovenox] 120 mg/0.8 mL syringe 111 mg subcut Q12H 10 Days Qty: 14.8 RF: 0 warfarin 5 mg tablet 5 mg PO DAILY Qty: 60 RF: 3 Continued pregabalin [Lyrica] 100 mg capsule 100 mg PO BID Qty: 60 RF: 0 diclofenac sodium 50 mg tablet,delayed release (DR/EC) 50 mg PO BID Qty: 60 RF: 0 magnesium oxide 500 mg capsule 500 mg PO DAILY RF: 0 ondansetron HCl 8 mg tablet 8 mg PO TID RF: 0 ehtlfhhexb-vulljzjeinupy-fame 50-325-40 mg tablet 1 tab PO Q4H PRN (Reason: Pain) RF: 0 prochlorperazine maleate [Compazine] 10 mg Tablet 10 mg PO UD PRN (Reason: Nausea) RF: 0 glimepiride 2 mg Tablet 2 mg PO QAM RF: 0 clindamycin phosphate 1 % Gel 1 applic TOPICAL DAILY PRN (Reason: psorasis) RF: 0 amlodipine 10 mg Tablet 10 mg PO QAM RF: 0 lisinopril 10 mg Tablet 10 mg PO QAM RF: 0 ergocalciferol (vitamin D2) 50,000 unit Capsule 50,000 unit PO WK RF: 0 clobetasol 0.05 % Ointment 1 applic TOPICAL DAILY PRN (Reason: psorasis) RF: 0 albuterol sulfate [ProAir HFA] 90 mcg/actuation Hfa Aerosol Inhaler 2 puff INHALATION Q6H PRN (Reason: Shortness Of Breath) RF: 0 insulin lispro [Humalog KwikPen Insulin] 100 unit/mL Insulin Pen 0 unit SUBCUT TIDM RF: 0 Levemir FlexTouch U-100 Insuln 100 unit/mL (3 mL) Insulin Pen 15 unit SUBCUT AMPM RF: 0 venlafaxine 150 mg Tablet Extended Release 24hr 150 mg PO AMPM RF: 0 riboflavin (vitamin B2) 400 mg Tablet 400 mg PO QAM RF: 0 Benefiber Healthy Shape 5 gram/7.4 gram Powder 5 g PO QAM RF: 0 Changed tramadol 50 mg Tablet 50 mg PO Q4 PRN (Reason: Pain) 10 Days Qty: 30 RF: 0 Discharge Orders: Discharge Order (Routine); Ordered 06/01/20 Ordered By: Dennis Olivas/Other Patient Handouts: High Blood Sugar (Hyperglycemia), Managing Type 2 Diabetes, Insulin How to Use and Where to Inject, Managing Diabetes: The A1C Test, Enoxaparin injection Admission Data Admit Date/Time: 05/29/20 19:35 Attending Provider: Dennis Mckee Admit Provider: Baltazar Newton Primary Care Provider: Yobani Hernandez Other Providers: Baltazar Newton Other Interventions: Discharge Summary Assessment (RN) Last Done: 06/01/20 09:33 Coding Level of Care Code D/C Day Management >30 mins Diagnoses Bilateral pulmonary embolism I26.99 Hypoxia R09.02 Diabetic ketoacidosis E11.10 Diabetes mellitus complication detail: without coma Diabetes mellitus type: type 2 Diabetes mellitus, type 2 E11.65; Z79.4 Diabetes mellitus complication status: with hyperglycemia Diabetes mellitus prison insulin use: with ad terminal makeup operator use Urinary tract infection N39.0 Hypertension I10 Hypertension type: essential hypertension Hyperlipidemia E78.5 Hyperlipidemia type: unspecified Severe obstructive sleep apnea G47.33 Fibromyalgia M79.7
[2020-06-02 08:11] LABS: Anti Cardiolipin Ab IgG <14 GPL; Anti Cardiolipin Ab IgM <12 MPL; B2 Glycoprotein IgG <9 SGU (<=20); B2 Glycoprotein IgM <9 SMU (<=20)
--- NOTE | 2020-06-05 10:38 | Coding Query ---
CODING QUERY To promote full compliance with coding requirements relating to patient care, provider participation is requested in all cases of route specialist uncertainty. Please assist us with the question(s) below: Coding Question(s): Per May 30 Progress Note, "UTI ruled out." This is not documented on Discharge Summary. Please clarify below: (X ) UTI: initially thought she did not have it and then urine culture came back positive, treated appropriately ( ) UTI Ruled Out ( ) Other Please Explain: Thank you Kota Hunt Principal Diagnosis: "that condition established after study, to be chiefly responsible for occasioning the admission of the patient to the hospital for care." Co-Existing Principal Diagnosis: "when two or more diagnoses equally meet the criteria for principal diagnosis as determined by the circumstances of admission, diagnostic work up, and/or therapy provided, and the Alphabetic Index, Tabular List, or another coding guideline does not provide sequencing direction, any one of the diagnoses may be sequenced first." "When the physician has documented what appears to be a current diagnosis in the body of the record, but has not included the diagnosis in the final diagnostic statement, the physician should be asked whether the diagnosis should be added." (Source Coding Clinic 2 QTR90. p3-4) LAURE
== END 2020-06-01 11:36 | disposition home or self-care (01) | DRG 175 ==
LOC: ED 16:50 → SUATTDRO 19:35 → 2E 19:35